=== PATIENT | female | born 1965 | race Caucasian/White ===

== ENCOUNTER 2017-05-11 16:40 | Inpatient (IN) ==
[2017-05-11 17:31] LABS: Hemoglobin 16.8 g/dL (11.5-15.4); Mean Corpuscular HGB Conc 33.6 g/dL (31.6-35.5); Mean Corpuscular Hemoglobin 31.4 pg (28.0-33.3); Mean Corpuscular Volume 93.5 fL (83.0-100.0); Mean Platelet Volume 10.8 fL (9.4-12.4); Platelet Count 171 K/mcL (140-400); Red Blood Count 5.35 M/mcL (3.82-4.97); Red Cell Distribution Width 12.9 % (11.5-14.5)
[2017-05-11 17:42] LABS: Calcium 9.5 mg/dL (8.6-10.3); Carbon Dioxide 26 mEq/L (23-29); Chloride 99 mEq/L (98-107); Potassium 4.1 mEq/L (3.5-5.1); Sodium 131 mEq/L (136-145)
[2017-05-11] MEDS ORDERED: Ipratropium/Albuterol Neb 3 ML IH ONE (17:47)
[2017-05-11 17:48] LABS: BUN/Creatinine Ratio 16 (6-26); Blood Urea Nitrogen 9 mg/dL (6-20); Glucose 336 mg/dL (70-105); Osmolality,Calculated 284 (280-300); eGFR For African Americans > 60 (> 60); eGFR For Non-African Americans > 60 (> 60)
[2017-05-11] MEDS ORDERED: Aspirin 81 MG TAB.CHEW PO ONE (17:59)
[2017-05-11] MEDS ORDERED: *HR* Heparin 5,000 UNIT/ML VIAL IVP ONE (18:06)
--- NOTE | 2017-05-11 18:08 | Emergency Department Note ---
Disposition Clinical Impression: NSTEMI (non-ST elevated myocardial infarction) Hypertension Qualifiers: Hypertension type: unspecified Qualified Code(s): I10 - Essential (primary) hypertension Disposition: Admitted As Inpatient Condition: Fair Time of Disposition: 18:41 General Adult HPI - General Chief complaint: ED Recheck/Abnormal Lab/Rx Stated complaint: High B/P, ELIJAH Time Seen by Provider: 05/11/17 17:38 Source: patient Mode of arrival: ambulatory Limitations: no limitations Nursing Notes Reviewed: Yes Vital Signs Reviewed: Yes - History of Present Illness HPI Narrative: 51-year-old female with a history of diabetes, high blood pressure and tobacco use presents for evaluation of elevated blood pressure and dyspnea. Patient states symptom onset has been over the past 2 weeks. Noted to have progressive dyspnea. Denies any fevers or cough. Has a chest pain. Denies any history of heart attacks. Patient was evaluated earlier today and was noted to have higher blood pressures than her baseline. Patient was sent into the ER for further evaluation. Patient denies any other symptoms. Denies any abdominal pain. No nausea or vomiting. States she has been taking her blood pressure medications as directed. Pain Scale: 0 - Related Data Home Medications Medication Instructions Recorded Confirmed Gabapentin [Neurontin] 1,200 mg PO HS 02/24/15 06/06/15 Gabapentin [Neurontin] 600 mg PO DAILY 02/24/15 06/06/15 Insulin Glargine [Lantus] 60 unit SQ HS 02/24/15 06/06/15 Insulin LISPRO [HumaLOG] 20 units SQ TIDWM 02/24/15 06/06/15 Lansoprazole [Prevacid] 15 mg PO DAILY 02/24/15 06/06/15 Lisinopril [Zestril] 10 mg PO DAILY 02/24/15 06/06/15 Meloxicam [Mobic] 15 mg PO DAILY 02/24/15 06/06/15 Ranitidine HCl [Zantac] 150 mg PO BID 02/24/15 06/06/15 Venlafaxine HCl [Effexor Xr] 75 mg PO DAILY 02/24/15 06/06/15 Oxycodone HCl/Acetaminophen 1 each PO BID 05/10/15 06/06/15 [Percocet 10-325 mg Tablet] Lantus 60 units SQ HS 06/06/15 06/06/15 Previous Rx's Medication Instructions Recorded OxyCODONE Immed Rel [Roxicodone 5 5 mg PO Q6HR PRN #60 tablet 05/15/15 MG] metroNIDAZOLE [Flagyl] 250 mg PO TID 14 Days tablet 06/09/15 Lisinopril [Zestril] 20 mg PO DAILY #30 tablet 03/02/17 Allergies Allergy/AdvReac Type Severity Reaction Status Date / Time Penicillins Allergy Hives Verified 05/11/17 16:42 hydrocodone AdvReac Hives Verified 05/11/17 16:42 All systems ED: reviewed and negative except as stated. 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 Absent: symmetric chest wall rise - Respiratory Respiratory exam: Present: normal lung sounds bilaterally, prolonged expiratory phase. Absent: respiratory distress - Cardiovascular Cardiovascular exam: Present: regular rate, normal rhythm. Absent: systolic murmur - Abdominal Exam Abdominal exam: Present: soft, Non-Tender - Extremities Exam Extremities exam: Present: normal inspection. Absent: pedal edema - Back Exam Back exam: Present: normal inspection - Neurological Exam Neurological exam: Present: alert - Skin Skin exam: Present: warm, dry, intact, normal color Course - Reevaluation(s) Reevaluation #1: Patient seen and examined. Patient's resting comfortably. Patient continues to deny chest pain. Time: 18:58 Vital Signs Temperature 98.5 F 05/11/17 16:42 Pulse Rate 95 05/11/17 16:42 Respiratory Rate 16 05/11/17 16:42 Blood Pressure 185/99 05/11/17 16:42 O2 Sat by Pulse Oximetry 93 05/11/17 16:42 Temperature 98.5 F 05/11/17 16:42 Pulse Rate 109 05/11/17 18:30 Respiratory Rate 20 05/11/17 18:30 Blood Pressure 163/96 05/11/17 18:30 O2 Sat by Pulse Oximetry 96 05/11/17 18:30 Oxygen Delivery Oxygen Delivery Room Air Medical Decision Making - MDM Narrative Medical decision making narrative: 51-year-old female presents for evaluation of dyspnea and elevated blood pressure. Patient had a troponin which was elevated. Patient's EKG shows no acute changes. Given the patient's dyspnea a d-dimer was ordered from the ER and instructed the hospitalist to follow up if elevated will get his CTA. Patient will be started on heparin given the elevated troponin. Patient does not have a history of GI bleed. Patient does not appear to be anemic. Patient was given nitroglycerin to help with blood pressure control in the setting of an elevated troponin. Also given aspirin. She was also noted to have elevated blood sugar. Patient was given IV insulin. - Lab Data Lab results reviewed: Yes I reviewed the patient's lab results. Result diagrams: 05/11/17 17:13 05/11/17 17:13 Lab Results 05/11/17 05/11/17 05/11/17 Range/Units 17:13 17:13 17:13 WBC 10.0 (4.3-11.1) K/mcL RBC 5.35 H (3.82-4.97) M/mcL Hgb 16.8 H (11.5-15.4) g/dL Hct 50.0 H (35.3-44.9) % MCV 93.5 (83.0-100.0) fL MCH 31.4 (28.0-33.3) pg MCHC 33.6 (31.6-35.5) g/dL RDW 12.9 (11.5-14.5) % Plt Count 171 (140-400) K/mcL MPV 10.8 (9.4-12.4) fL Sodium 131 L (136-145) mEq/L Potassium 4.1 (3.5-5.1) mEq/L Chloride 99 (98-107) mEq/L Carbon Dioxide 26 (23-29) mEq/L BUN 9 (6-20) mg/dL Creatinine 0.57 L (0.60-1.20) mg/dL Est GFR ( Amer) > 60 (> 60) Est GFR (Non-Af Amer) > 60 (> 60) BUN/Creatinine Ratio 16 (6-26) Glucose 336 H (70-105) mg/dL Calculated Osmolality 284 (280-300) Lactic Acid 1.8 (0.5-2.2) mmol/L Calcium 9.5 (8.6-10.3) mg/dL Troponin I (< 0.04) ng/mL B-Natriuretic Peptide (Less than 100) pg/mL 05/11/17 05/11/17 Range/Units 17:13 17:13 WBC (4.3-11.1) K/mcL RBC (3.82-4.97) M/mcL Hgb (11.5-15.4) g/dL Hct (35.3-44.9) % MCV (83.0-100.0) fL MCH (28.0-33.3) pg MCHC (31.6-35.5) g/dL RDW (11.5-14.5) % Plt Count (140-400) K/mcL MPV (9.4-12.4) fL Sodium (136-145) mEq/L Potassium (3.5-5.1) mEq/L Chloride (98-107) mEq/L Carbon Dioxide (23-29) mEq/L BUN (6-20) mg/dL Creatinine (0.60-1.20) mg/dL Est GFR ( Amer) (> 60) Est GFR (Non-Af Amer) (> 60) BUN/Creatinine Ratio (6-26) Glucose (70-105) mg/dL Calculated Osmolality (280-300) Lactic Acid (0.5-2.2) mmol/L Calcium (8.6-10.3) mg/dL Troponin I 0.13 H* (< 0.04) ng/mL B-Natriuretic Peptide 125 H (Less than 100) pg/mL - Radiology Data Radiology results reviewed: Yes I reviewed the patient's radiology results. Chest X-Ray 02/14/18 16:46 IMPRESSION: No acute cardiopulmonary abnormality. D/ / Claudy Diamond / Claudy Diamond Interpreting Provider: Claudy Diamond - EKG Data EKG #1 EKG attestation: Yes I reviewed and interpreted this EKG. EKG shows normal: sinus rhythm Rate: normal Rhythm: NSR [place]/QRS: normal P waves: DAVI T wave inversions noted in: v1 Interpretation: no acute changes S.B.A.R. - S.B.AGenny Situation: Demographics Background: Presenting Complaint Assessment: Vital Signs, Course and respsone to treatment, Patient/Family Expectation Recommendation: Recommendation based on pending studies, treatments, or consults (Follow up on D dimer) S.B.A.Anais Report Given to: Piotr Garza Repor Time: 18:57 Attestation Statement - Attestation Attestation: I examined this patient and my medical decision-making was reviewed with the Resident Physician. I agree with the documented findings, disposition and treatment plan as described except to the extent set forth below. Patient to the ED with high blood pressure. Sent in by her stretcher helper. For the second visit she has had high blood pressure. Systolic over 200. She complained of some tightness in her chest and shortness of breath over the past couple weeks that she sent her for evaluation. On exam she is in no acute distress. Blood pressure is 170/110 on my evaluation. Sitting up in a chair pleasant and conversant. Plan. Patient had triage labs done that show positive for an appointment 13. She has been experiencing some shortness of breath. We will place her on heparin and admitted to the hospital for further blood pressure management and cardiac workup. 35 minutes of critical care exclusive of separately billed procedures.
[2017-05-11] MEDS ORDERED: Heparin 25,000 UNIT/500 ML D5W 25,000 UNIT/500 ML BAG IVC SCH (18:15)
[2017-05-11] MEDS ORDERED: Nitroglycerin 0.4 MG TAB.SUBL SL ONE (18:16)
[2017-05-11] MEDS: Nitroglycerin 0.4 MG TAB.SUBL SL PRN ×3 (18:18→21:22)
[2017-05-11] MEDS ORDERED: *HR* Heparin 5,000 UNIT/ML VIAL IVP PRN ×2 (18:34)
[2017-05-11] MEDS ORDERED: Insulin Regular, Human 100 UNIT/ML IV ONE (18:55)
[2017-05-11 19:38] LABS: D-Dimer < 215 ng/mLFEU (0-500)
[2017-05-11 19:39] LABS: Activated Partial Thrombo Time 33.1 Seconds (26.0-36.0); INR 1.1
--- NOTE | 2017-05-11 19:56 | Internal Med History&Physical ---
Date of Encounter: 05/11/17 Time of Encounter: 19:53 Assessment and Plan (1) Hyperlipidemia Current visit: Yes Status: Chronic Chronic check lipid profile in a.m. Qualifiers: Hyperlipidemia type: pure hypercholesterolemia Qualified Code(s): E78.00 - Pure hypercholesterolemia, unspecified; E78.0 - Pure hypercholesterolemia (2) NSTEMI (non-ST elevated myocardial infarction) Current visit: Yes Status: Acute Patient will regarding chest pain typical of cardiac chest pain troponin 0.13 with trend troponins keep nothing by mouth after midnight for possible cardiac cath (3) HTN (hypertension) Current visit: Yes Status: Chronic Chronic uncontrolled likely contribution to cardiac ischemia Qualifiers: Hypertension type: essential hypertension Qualified Code(s): I10 - Essential (primary) hypertension (4) Diabetes mellitus Current visit: No Status: Chronic Chronic resume home medication list*sliding scale and check hemoglobin A1c a.m. 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 Taylor is a 51 year old female Patient with history of diabetes, hypertension, smoking history, high cholesterol anxiety and depression and obesity high. Patient presented to the diabetic clinic today a blood pressure was very high also has been having chest pressure and progressive shortness of breath she was then sent to the emergency room patient reports in the last 2 weeks of having chest pain and shortness of breath with exertion emergency room evaluation troponin was 0.13 blood pressure was 180/99 d-dimer was negative therefore CTA was not done patient admitted for further cardiac evaluation started on heparin drip and will consult cardiology and and keep nothing by mouth after midnight for possible cardiac cath in am. Past Med Surg Social Fam HX - Past Medical History Medical history: diabetes, hyperlipidemia, hypertension, other Psychiatric history: anxiety, depression - Past Surgical History Surgical History: appendectomy, , cholecystectomy, other - Social History Smoking Status: Current every day smoker Smokeless Tobacco Status: No Alcohol use: none Drug use: none - Family History Father Living Status: Still Living Hx Family Cardiac Disorders: Yes (hyperlipidemia, htn) Hx Family Respiratory Disorders: No Hx Family Cancer: No Hx Family GI Disorders: No Hx Family Endocrine Disorder: Yes (diabetes) Hx Family Neuromuscular Disorders: No Hx Family Neurologic Disorders: No Hx Family HEENT Disorders: No Hx Family Autoimmune Disorders: No Internal Medicine - H&P: Meds Gabapentin [Neurontin] 1,200 mg PO HS 02/24/15 [History] Gabapentin [Neurontin] 600 mg PO BID 02/24/15 [History] Ranitidine HCl [Zantac] 150 mg PO BID 02/24/15 [History] Venlafaxine HCl [Effexor Xr] 75 mg PO DAILY 02/24/15 [History] Oxycodone HCl/Acetaminophen [Percocet 10-325 mg Tablet] 1 each PO TID PRN [History] Lisinopril [Zestril] 20 mg PO DAILY #30 tablet 03/02/17 [Rx] Albuterol Sulfate [Ventolin Hfa] 2 puff IH Q4H PRN 05/11/17 [History] Fluticasone Propionate Nasal [Flonase] 100 mcg NS DAILY PRN 05/11/17 [History] Insulin Regular, Human [Humulin R U-500 Kwikpen] 275 unit SQ TID 05/11/17 [ History] Meloxicam [Meloxicam] 15 mg PO DAILY 05/11/17 [History] Metformin HCl [Metformin HCl ER] 1,000 mg PO QPM 05/11/17 [History] 3 Allergy/AdvReac Type Severity Reaction Status Date / Time Penicillins Allergy Hives Verified 05/11/17 16:42 hydrocodone AdvReac Hives Verified 05/11/17 16:42 All Systems PM: A 10-system review of systems was performed and is negative for pertinent findings except as documented above in the HPI. - Constitutional Constitutional: fatigue - EENT Eyes: no change in vision, no discharge, no pain, no photophobia Ears: no ear discharge, no ear pain, no tinnitus Nose, mouth and throat: no dysphagia, no nasal discharge, no neck pain, no sore throat - Cardiovascular Cardiovascular ROS IM: chest pain, dyspnea, dyspnea on exertion - Respiratory Respiratory: dyspnea on exertion, no cough, no dyspnea, no wheezing, no excessive phlegm production - Gastrointestinal Gastrointestinal: no abdominal pain, no diarrhea, no hematemesis, no hematochezia, no melena, no nausea, no vomiting - Genitourinary Genitourinary: no change in urinary stream, no dysuria, no flank pain, no hematuria - Musculoskeletal Musculoskeletal ROS IM: no numbness, no tingling - Constitutional Vitals: Temp Pulse Resp BP Pulse Ox 98.5 F 109 14 155/96 96 05/11/17 16:42 05/11/17 18:30 05/11/17 19:37 05/11/17 19:37 05/11/17 18:30 - Head Head exam: Present: atraumatic, normocephalic - Eye Eye exam: Present: PERRL, conjuntiva pink, sclera anicteric Pupils: Present: PERRL - Neck Neck exam general surgery: Present: supple, trachea midline. Absent: lymphadenopathy - Respiratory Respiratory exam: Present: CTAB. Absent: accessory muscle use, rales, rhonchi, wheezes - Cardiovascular Cardiovascular exam: Present: RRR, +S1, +S2. Absent: diastolic murmur, gallop, rubs, systolic murmur - GI/Abdominal GI/Abdominal exam: Present: normal bowel sounds, soft, no peritoneal signs. Absent: distended, tenderness - Extremities Exam Extremities exam: Present: warm, radial pulses palpable and symmetrical. Absent : calf tenderness, cyanotic, pedal edema - Neurological Exam Neurological exam: Present: CN II-XII intact, oriented X3, no focal deficits. Absent: pronater drift, facial droop, speech deficit - Skin Skin exam: Present: dry, intact Internal Med - H&P Results - Labs CBC & Chem 7: 05/11/17 17:13 05/11/17 17:13
[2017-05-11] MEDS ORDERED: *HR* HYDROcodone/Acet 5/325 mg TABLET PO PRN (19:59)
[2017-05-11] MEDS ORDERED: Naloxone 0.4 MG/ML INJ IVP PRN (19:59)
[2017-05-11] MEDS ORDERED: Acetaminophen 325 MG TABLET PO PRN (19:59)
[2017-05-11] MEDS ORDERED: Fluticasone Propionate Nasal 50 MCG/SPRAY BOTTLE NS PRN (20:02)
[2017-05-11] MEDS ORDERED: *HR* Dextrose 50 % in Water (Syg) 50 ML SYRINGE IVP PRN (20:05)
[2017-05-11] MEDS ORDERED: Dextrose Gel 15 GM/37.5 ML TUBE PO PRN ×2 (20:05)
[2017-05-11] MEDS ORDERED: D5% in Water 1,000 ML IVC PRN (20:05)
[2017-05-11] MEDS: Famotidine 20 MG TABLET PO SCH (22:30)
[2017-05-11] MEDS: 0.9 % Sodium Chloride 1,000 ML IVC SCH (22:31)
[2017-05-12] MEDS ORDERED: Nitroglycerin 1 INCH/GM PACKET TP ONE ×2 (00:42)
[2017-05-12] MEDS: Insulin LISPRO 300 UNITS/3 ML VIAL SQ SCH ×5 (01:15→22:04)
[2017-05-12] MEDS: Gabapentin 400 MG CAPSULE PO SCH ×2 (01:21→22:03)
[2017-05-12 04:10] LABS: Hematocrit 46.3 % (35.3-44.9); Hemoglobin 15.3 g/dL (11.5-15.4); Mean Corpuscular Hemoglobin 31.2 pg (28.0-33.3); Mean Corpuscular Volume 94.5 fL (83.0-100.0); Mean Platelet Volume 11.3 fL (9.4-12.4); Platelet Count 159 K/mcL (140-400); Red Cell Distribution Width 13.2 % (11.5-14.5)
[2017-05-12 04:39] LABS: Alanine Aminotransferase 306 Units/L (7-52); Albumin 3.3 g/dL (3.5-5.7); Albumin/Globulin Ratio 1.1 (1.1-2.2); Alkaline Phosphatase 106 Units/L (34-104); Aspartate Amino Transferase 327 Units/L (13-39); BUN/Creatinine Ratio 17 (6-26); Bilirubin,Total 0.4 mg/dL (0.3-1.0); Blood Urea Nitrogen 9 mg/dL (6-20); Calcium 8.7 mg/dL (8.6-10.3); Carbon Dioxide 27 mEq/L (23-29); Chloride 103 mEq/L (98-107); Cholesterol 191 mg/dL (< 200); Globulin 2.9 g/dL (2.4-3.5); Glucose 246 mg/dL (70-105); HDL Cholesterol 24 mg/dL (40-59); Magnesium 1.6 mg/dL (1.6-2.6); Osmolality,Calculated 285 (280-300); Potassium 4.4 mEq/L (3.5-5.1); Sodium 134 mEq/L (136-145); Total Protein 6.2 g/dL (6.4-8.9); Triglycerides 451 mg/dL (< 150); eGFR For African Americans > 60 (> 60); eGFR For Non-African Americans > 60 (> 60)
[2017-05-12] MEDS ORDERED: Lisinopril 20 MG TABLET PO SCH ×2 (09:00→09:19)
--- NOTE | 2017-05-12 09:21 | Internal Med Progress Note ---
Date of Encounter: 05/12/17 Time of Encounter: 09:19 - Assessment and plan (1) NSTEMI (non-ST elevated myocardial infarction) Current Visit: Yes Status: Acute Assessment and plan: Continue heparin drip. Cardiology is consulted. Echo is pending. Flat aspirin and a statin. Continue beta laura. (2) HTN (hypertension) Current Visit: Yes Status: Chronic Assessment and plan: The patient's blood pressure is better controlled compared to admission. Diastolic still elevated. Will increase lisinopril to 30 mg daily. Continue with metoprolol tartrate 50 mg twice a day and we have room to increase that as well. We will add hydralazine to be used IV when necessary. Qualifiers: Hypertension type: essential hypertension Qualified Code(s): I10 - Essential (primary) hypertension (3) Diabetes mellitus Current Visit: No Status: Chronic Assessment and plan: Continue with insulin sliding scale. Continue with Accu-Cheks. Qualifiers: Diabetes mellitus type: type 2 Diabetes mellitus complication status: with hyperglycemia Diabetes mellitus superintendent terminal insulin use: unspecified senior care insulin use status Qualified Code(s): E11.65 - Type 2 diabetes mellitus with hyperglycemia (4) DVT prophylaxis Current Visit: Yes Status: Acute Assessment and plan: Patient is on heparin drip - Subjective Interval history: Patient seen and examined. Admitted yesterday with elevated blood pressure and elevated troponins. Treated as an NSTEMI with a heparin drip and consult cardiology. Blood pressure is better controlled although the diastolic blood pressure is elevated this morning. She has been afebrile. - Constitutional Vitals: Temp Pulse Resp BP Pulse Ox 97.7 F 81 18 149/104 94 05/12/17 05:21 05/12/17 07:00 05/12/17 07:00 05/12/17 07:00 05/12/17 05:21 Exam: GEN: NAD CVS: RRR. S1, S2, No m/r/g RESP: CTAB ABD: Soft, NT, ND, +BS EXT: No edema. 2+ DP. No rashes NEURO: Nonfocal Internal Medicine: Result - Labs CBC & Chem 7: 05/12/17 03:42 05/12/17 03:42 Labs: Short CBC 05/12/17 Range/Units 03:42 WBC 7.5 (4.3-11.1) K/mcL Hgb 15.3 D (11.5-15.4) g/dL Hct 46.3 H (35.3-44.9) % Plt Count 159 (140-400) K/mcL BMP 05/12/17 03:42 Sodium 134 L Potassium 4.4 Chloride 103 Carbon Dioxide 27 BUN 9 Creatinine 0.52 L Glucose 246 H Calcium 8.7 Cardiac Enzymes 05/11/17 05/12/17 Range/Units 20:35 02:29 Troponin I 0.14 H* 0.14 H* (< 0.04) ng/mL Liver Function 05/12/17 Range/Units 03:42 Total Bilirubin 0.4 (0.3-1.0) mg/dL AST 327 H (13-39) Units/L ALT 306 H (7-52) Units/L Alkaline Phosphatase 106 H (34-104) Units/L Albumin 3.3 L (3.5-5.7) g/dL - ABG Interpretation ABG results: PT/INR, D-dimer PT 12.0 Seconds (9.4-12.1) 05/11/17 18:33 D-Dimer < 215 ng/mLFEU (0-500) 05/11/17 18:33 Consult Discharge Plan - Plan Referrals: Mary Arias, ADULT HEALTH CLINICAL NURSE SPECIALIST [Primary Care Provider] -
[2017-05-12] MEDS: Famotidine 20 MG TABLET PO SCH ×2 (10:35→22:02)
[2017-05-12] MEDS: Venlafaxine XR (24 HR) 75 MG CAP.ER.24H PO SCH (10:35)
[2017-05-12] MEDS: Aspirin Enteric Coated 81 MG Tablet PO SCH (12:29)
[2017-05-12] MEDS ORDERED: Heparin 1,000 UNITS/500 mL 500 ML ONE (14:27)
[2017-05-12] MEDS ORDERED: *HR* Heparin 10,000 UNIT/10 ML VIAL ONE (14:27)
[2017-05-12] MEDS ORDERED: ISOVUE-370 200 ML INFUS..BTL IV ONE (14:27)
[2017-05-12] MEDS ORDERED: 0.9 % Sodium Chloride 1,000 ML ONE (14:27)
--- NOTE | 2017-05-12 14:56 | Pre-Sedation Evaluation ---
Pre-sedation evaluation - Pre-sedation checklist Date of procedure: 05/12/17 Procedure: left heart cath Recent Vitals: Last Vital Signs Temp 97.9 F 05/12/17 11:00 Pulse 69 05/12/17 11:00 Resp 18 05/12/17 11:00 BP 152/81 05/12/17 11:00 Pulse Ox 97 05/12/17 11:00 H&P (including ROS) documented in medical record: Yes Previous reaction to sedatives/anesthetics: No Dietary Status: NPO after Midnight Airway Assessment: Patient can open mouth completely, TMJ function normal Dentition: No loose teeth or bridges Possible difficult airway: No ASA Classification *see protocol: CLASS IV-Severe systemic disease/constant threat to pt's life Plan of Care: Pt appropriate candidate for procedure/moderate/conscious sedation , Risks/benefits of procedure/sedation discussed w/ patient/family, If not NPO; Risk of intake outweiged by necessity to perform procedure
[2017-05-12] MEDS ORDERED: *HR* Midazolam HCl 5 MG/5 ML VIAL IVP ONE (14:57)
[2017-05-12] MEDS ORDERED: Nitroglycerin 1,000 MCG/10 ML VIAL IV ONE (15:01)
[2017-05-12] MEDS ORDERED: *HR* Ticagrelor 90 MG TABLET ONE (15:34)
--- NOTE | 2017-05-12 16:04 | Invasive Diagnostic Lab Proc ---
Name: Queenie Taylor Date of Study: 05/12/2017 Date: 1965 Ht: 59.1in Medical Record#: [id number] Age: 51 Wt: 180.12lb Gender: Female BSA: 1.76 Order #: [id number] BMI: 36.31 Physicians Procedure Physician: Geovanni Jones DO Referring MD: Referring MD: Staff Name Position Time In Vasquez Conrad RN Cook Station 02:48 PM Cinthia Garcia RN Monitor 02:48 PM Napoleon Dixon RT (R) Scrub 02:48 PM Indications Indication Non-Stemi Procedures Performed Procedure L HRT ARTERY/VENTRICLE ANGIO PRQ CARD SHMUEL STENT W/ANGIO 1 VSL Pre-Procedure Checklist Informed consent is complete signed and on chart. H&P is on chart. ID band is on and ID verified with patient. Patient NPO for procedure The procedure was described for the patient and questions were answered. Blood Pressure: 155/99 ECG is on chart. Rhythm: NSR Plan of Care Patient will tolerate the procedure without complications. Adequate level of comfort will be maintained. Hemodynamics will remain stable Patient will recover from procedure without complications. Respiratory function will be maintained. Cardiac rhythm will remain stable. Patient temperature will be maintained. Patient and/or family have verbalized understanding of the procedure. Patient Education Chief Complaint/Reason for Test: Cardiac Cath Developmental Category: Adult (18-64 years) Developmentally Appropriate for Age: Yes Learning Barriers: None Education Needs: Procedure Education Method: Verbal Information Taught: Cardiac Cath Educational Evaluation: Able to repeat information Intravenous Access Time IV Size Location DC'd Fluid/Drip Rate Units RN 02:47 PM 18g 1 03/31" Patent On Arrival Lt Arm 0.9NaCl 25 ml/hr Vasquez Conrad RN Allergies Penicillins hydrocodone PCN,AMPICILLILN PCN, AMPICILLIN Oxycodone Vital Signs Time BP (mmHg) HR (bpm) O2 Sat. RR (bpm) LOC 02:49 PM / % 5 = Fully awake and oriented or at pre-proc level 02:49 PM / % 4 = Oriented but drowsy 03:12 PM / % 4 = Oriented but drowsy 03:00 PM 154 / 90 69 96 % 15 03:04 PM 148 / 95 69 96 % 20 03:09 PM 133 / 96 70 96 % 24 03:14 PM 147 / 83 68 96 % 17 03:19 PM 161 / 93 80 96 % 20 03:24 PM 171 / 100 69 97 % 16 03:29 PM 144 / 92 75 97 % 20 03:34 PM 155 / 99 75 95 % 21 03:39 PM 169 / 100 70 98 % 19 03:28 PM / % 4 = Oriented but drowsy Procedural Medications Time Medication Dose Units Method Given By 02:48 PM Oxygen 2 L/min nasal cannula Vasquez Conrad RN 03:02 PM Versed 2 mg Intravenous Vasquez Conrad RN 03:09 PM Versed 1 mg Intravenous Vasquez Conrad RN 03:11 PM Lidocaine 2% 10 ml Subcutaneous Geovanni Jones DO 03:20 PM Heparin 5000 units Intravenous Vasquez Conrad RN 03:31 PM Nitroglycerin 200 mcg Intracoronary Geovanni Jones DO 03:34 PM Brilinta 180 mg Orally Vasquez Conrad RN ASA Classification: CLASS III- Severe systemic disease (i.e. prior AMI, diabetes with vascular complications, morbid obesity) Rhonda Score Preprocedure Postprocedure Activity 2- Moves 4 extremities sustained head lift Activity 2- Moves 4 extremities sustained head lift Circulation 2- SBP +/= 20 points of pre-anesthetic level Circulation 2- SBP +/= 20 points of pre-anesthetic level Consciousness 2- Awake and alert oriented x 3 Consciousness 2- Awake and alert oriented x 3 O2 Saturation 2- Able to maintain O2 satruation of 92% on room air O2 Saturation 2- Able to maintain O2 satruation of 92% on room air Respiratory 2- Able to deep breathe and cough well Respiratory 2- Able to deep breathe and cough well Total Score 10 Total Score 10 Contrast Agent: Isovue Fluoro Dose: 784 mGy Activated Clotting Time Time Seconds to Clot 03:30 PM 400 Procedure Log Time Note Enter By 02:40 PM CathStat 02:48 PM Pt arrived to labor relations consultant 2 at 14:48 [email or web address] 02:48 PM Vasquez Conrad RN Position: Cook Station Time in: 14:48 [email or web address] 02:48 PM Cinthia Garcia RN Position: Monitor Time in: 14:48 [email or web address] 02:48 PM Napoleon Dixon (R) Position: Scrub Time in: 14:48 [email or web address] 02:48 PM Case Delayed no [email or web address] 02:49 PM Time: 14:48 Oxygen on at 2 L/min per nasal cannula by Vasquez Conrad RN csmith 02:49 PM Time: 14:49 Patient comfortable and pain free: Yes [email or web address] 02:49 PM Time: 14:49LOC: 5 = Fully awake and oriented or at pre-proc level csmith 02:50 PM Physician arrived 14:50 [email or web address] 02:50 PM Meet and greet completed csmith 02:50 PM Sign in performed according to hospital policy. csmith 02:51 PM Procedure start 14:51 [email or web address] 02:58 PM Case Start 02:58 PM Vitals capture started with the following parameters, Patient=Adult, Interval=5 min, Initial Hcmdayio=260 mmHg, Deflation Rate=5 mmHg, Cuff placed on Right Arm 03:00 PM HR=69 bpm, DCYL=473/90 mmhg, SpO2=96.0 %, Resp=15 B/min, Comment=nsr 03:02 PM Hair removed from procedure site in procedure lab using clippers. Bilateral groin prepped with Chloraprep by Cinthia Garcia RN, then patient was draped. Skin intact. [email or web address] 03:02 PM Time: 15:02 Versed 2 mg Intravenous Given by Vasquez Conrad RN csmith 03:03 PM Clinical Presentation: Non-STEMI csmith 03:04 PM HR=69 bpm, DODG=207/95 mmhg, SpO2=96.0 %, Resp=20 B/min, Comment=nsr 03:04 PM Pressure channel 2 zeroed. 03:09 PM HR=70 bpm, BGSE=080/96 mmhg, SpO2=96.0 %, Resp=24 B/min, Comment=nsr 03:10 PM Time: 15:09 Versed 1 mg Intravenous Given by Vasquez Conrad RN scoates 03:11 PM Time out performed according to hospital policy scoates 03:11 PM Time: 15:11 10 ml Lidocaine 2% to right groin Subcutaneous Given by Geovanni Jones DO scoates 03:12 PM Time: 14:49 Patient comfortable and pain free: Yes scoates 03:12 PM Time: 14:49LOC: 4 = Oriented but drowsy scoates 03:14 PM HR=68 bpm, TQRV=706/83 mmhg, SpO2=96.0 %, Resp=17 B/min, Comment=nsr 03:14 PM Micro-Introducer Kit utilized for sheath placement scoates 03:14 PM Access obtained by percutaneous puncture. 6Fr 10cm [facility] sheath placed in right Femoral artery. [id number] scoates 03:15 PM 6Fr FR 4 catheter inserted over the wire DN scoates 03:15 PM Recorded Pressure: LV, HR=71, Condition=Condition 1 (Left Ventricle) LV 149/9/22 03:15 PM Recorded Pressure: LV, Ao, HR=68, Condition=Condition 1 (Left Ventricle) LV 164/8/27, (Aorta) Ao 138/59/98 03:15 PM Catheter selectively placed in left ventricle scoates 03:15 PM Bolus angiogram of left Ventricle complete: hand injected for a total of 10 mls scoates 03:15 PM RCA angiography performed in multiple views. scoates 03:16 PM Catheter removed scoates 03:16 PM 6Fr FL 4 catheter inserted over the wire DN scoates 03:17 PM Recorded Pressure: Ao, HR=70, Condition=Condition 1 (Aorta) Ao 141/76/99 03:18 PM LCA angiography performed in multiple views. scoates 03:19 PM Catheter removed scoates 03:19 PM Coronary Dominance: Left scoates 03:19 PM HR=80 bpm, OBTI=906/93 mmhg, SpO2=96.0 %, Resp=20 B/min, Comment=nsr 03:20 PM Lesion found in Distal Circumflex. Pre Stenosis: 90 Pre ELLEN Flow: 3: Complete and Brisk Flow/Perfusion scoates 03:20 PM Circumflex, Obtuse Marginal, Left Posterior Descending, and Left Posterolateral Coronary Arteries with 90 % stenosis. scoates 03:20 PM Time: 15:20 Heparin 5000 units Intravenous Given by Vasquez Conrad RN scoates 03:21 PM PCI Status Urgent scoates 03:21 PM PCI Indication: PCI for high risk Non-STEMI or unstable angina scoates 03:21 PM 6Fr JL4 Runway guide catheter was used to cannulate the PCI vessel successfully. reused? No scoates 03:21 PM Inflation device was opened. scoates 03:23 PM Guide catheter removed intact. scoates 03:23 PM 6Fr XB LAD 3.5 Hickman Bright-Tip guide catheter was used to cannulate the PCI vessel successfully. reused? No scoates 03:24 PM HR=69 bpm, LDDU=244/100 mmhg, SpO2=97.0 %, Resp=16 B/min, Comment=nsr 03:25 PM act drawn/ running scoates 03:26 PM .014 Choice Extra Support 300cm guide wire across target lesion- successful. reused? No scoates 03:26 PM 3.0mm x 16mm Synergy drug-eluting stent across target lesion- successful Lot #[id number] scoates 03:26 PM Recorded Pressure: Ao, HR=72, Condition=Condition 1 (Aorta) Ao 167/88/120 03:28 PM Time: 15:12LOC: 4 = Oriented but drowsy scoates 03:28 PM Time: 15:12 Patient comfortable and pain free: Yes scoates 03:28 PM Recorded Pressure: Ao, HR=77, Condition=Condition 1 (Aorta) Ao 171/95/126 03:29 PM HR=75 bpm, GUJP=276/92 mmhg, SpO2=97.0 %, Resp=20 B/min, Comment=nsr 03:30 PM At 15:30 the ACT was 400+ seconds. scoates 03:30 PM Recorded Pressure: Ao, HR=68, Condition=Condition 1 (Aorta) Ao 137/79/101 03:31 PM Stent deployed @ 14 libby for 17 seconds scoates 03:31 PM Stent delivery system removed intact. scoates 03:31 PM Time: 15:31 Nitroglycerin 200 mcg Intracoronary Given by Geovanni Jones DO scoates 03:33 PM Guide wire removed intact. scoates 03:33 PM Guide catheter removed intact. scoates 03:33 PM Bolus angiogram of right Femoral complete: hand injected for a total of 5 mls scoates 03:34 PM HR=75 bpm, XFPD=602/99 mmhg, SpO2=95.0 %, Resp=21 B/min, Comment=nsr 03:34 PM Time: 15:34 Brilinta 180 mg Orally Given by Vasquez Conrad RN scoates 03:35 PM Procedure completed at 15:35 scoates 03:35 PM Did you address ELLEN flow and Dominance? Yes scoates 03:35 PM Arterial sheath pulled, Angio-seal closure device used and was Successful [id number] S/N. scoates 03:38 PM Estimated Blood Loss: less than 20cc scoates 03:38 PM Post ECG NSR scoates 03:38 PM Post Blood Pressure 144/92 scoates 03:39 PM 15:39 Post Pulses Bilateral DP & PT 1+ scoates 03:39 PM Information taught Cardiac Cath, PCI, and Angioseal scoates 03:39 PM Education needs Procedure, Plan of Care, and Responsibilities of Patient in Care scoates 03:39 PM Learning barriers :None scoates 03:39 PM Education Methods Verbal scoates 03:39 PM Education evaluation Able to repeat information scoates 03:39 PM HR=70 bpm, IGVI=491/100 mmhg, SpO2=98.0 %, Resp=19 B/min, Comment=nsr 03:39 PM Site status No bleeding/hematoma - Rt Groin as reported by Vasquez Conrad RN at 15:39 scoates 03:39 PM Opsite applied scoates 03:41 PM Plavix, Effient or Brilinta given Yes scoates 03:41 PM Delay to floor No scoates 03:41 PM Family placed in not here at this time. scoates 03:41 PM Complications: None scoates 03:41 PM Fluoro Time: 5.6 scoates 03:41 PM Radiation Dose 784 mGy scoates 03:43 PM Time: 15:28 Patient comfortable and pain free: Yes scoates 03:43 PM Time: 15:28LOC: 4 = Oriented but drowsy scoates 03:53 PM Report given to Geri CHAVEZ Pt taken to 2NE Room #32. 15:52 scoates 03:53 PM Patient out of room: 15:53 scoates Complications Complication None Hemodynamics Pressures Site Systolic/A Wave Diastolic/V Wave Mean LV 149 9 22 LV 164 8 27 AO 138 59 98 AO 141 76 99 AO 167 88 120 AO 171 95 126 AO 137 79 101 Post Procedure Information Blood Pressure: 144/92 mmHg Rhythm: NSR Post procedural instructions were given Closure Device Time Device Success/Fail 05/12/2017 3:38:00 PM Angio-Seal VIP Successful Site Checks Time Location Status Staff Sheath In? Note 03:39 PM Rt Groin No bleeding/hematoma Vasquez Conrad RN Pulses Time Site Pre-Procedure Post-Procedure Note 05/12/2017 2:50:00 PM Bilateral DP & PT 1+ 3:39:00 PM Bilateral DP & PT 1+ Updated by Vasquez Conrad RN on 05/12/2017 3:54:51 PM electronically signed on 05/12/2017 3:55:29 PM with status of Final
--- NOTE | 2017-05-12 16:09 | Cardiology Consult Note ---
Date of Encounter: 05/12/17 Time of Encounter: 16:07 Assessment and Plan (1) Elevated troponin Current Visit: Yes Status: Acute Mild troponin elevation of unclear significance. Patient with multiple risk factors for CAD. Suspect probable elevation related to poorly controlled hypertension, but CAD cannot be excluded. We discussed options, including medical therapy, stress test vs cardiac catheterization. Patient prefers cardiac catheterization. The risks, benefits, and alternatives. Further recommendations to follow. (2) HTN (hypertension) Current Visit: Yes Status: Chronic Patient with poorly controlled hypertension. We discussed the importance of a low sodium diet, daily exercise. Tobacco cessation emphasized. Agree with increasing lisinopril, recommend 20 mg twice daily. Monitor blood pressure. If needed, may need to consider additional medications prior to or after discharge. Qualifiers: Hypertension type: essential hypertension Qualified Code(s): I10 - Essential (primary) hypertension Discussion w patient/family: The assessment and plan as outlined above was discussed with the patient and/or family members who expressed understanding and agreement. All questions were answered. Thank you for involving us in the care of your patient. Please call with any questions. History of Present Illness Consult date: 05/12/17 Requesting physician: Monty Arguello Consult reason: Troponin elevation Chief complaint: HTN History of present illness: Ms. 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 Patient with a ten-year history of hypertension. Admits blood pressure somewhat poorly controlled. Multiple risk factors for CAD, including hyperlipidemia, diabetes, essential HTN , and tobacco use. Describes occasional substernal chest discomfort. Since admission, mild troponin elevation noted. Past Med Surg Social Fam HX - Past Medical History Medical history: diabetes, hyperlipidemia, hypertension, other Psychiatric history: anxiety, depression - Past Surgical History Surgical History: appendectomy, , cholecystectomy, other - Social History Smoking Status: Current every day smoker Smokeless Tobacco Status: No Alcohol use: none Drug use: none - Family History Father Living Status: Still Living Hx Family Cardiac Disorders: Yes (hyperlipidemia, htn, 3x stents this year, clots, coronary stenosis) Hx Family Respiratory Disorders: No Hx Family Cancer: No Hx Family GI Disorders: No Hx Family Endocrine Disorder: Yes (diabetes) Hx Family Neuromuscular Disorders: No Hx Family Neurologic Disorders: Yes (Parkinsons, dementia) Hx Family HEENT Disorders: No Hx Family Autoimmune Disorders: No Medications and Allergies Gabapentin [Neurontin] 1,200 mg PO HS 02/24/15 [History] Gabapentin [Neurontin] 600 mg PO BID 02/24/15 [History] Ranitidine HCl [Zantac] 150 mg PO BID 02/24/15 [History] Venlafaxine HCl [Effexor Xr] 75 mg PO DAILY 02/24/15 [History] Oxycodone HCl/Acetaminophen [Percocet 10-325 mg Tablet] 1 each PO TID PRN [History] Lisinopril [Zestril] 20 mg PO DAILY #30 tablet 03/02/17 [Rx] Albuterol Sulfate [Ventolin Hfa] 2 puff IH Q4H PRN 05/11/17 [History] Fluticasone Propionate Nasal [Flonase] 100 mcg NS DAILY PRN 05/11/17 [History] Insulin Regular, Human [Humulin R U-500 Kwikpen] 275 unit SQ TID 05/11/17 [ History] Meloxicam [Meloxicam] 15 mg PO DAILY 05/11/17 [History] Metformin HCl [Metformin HCl ER] 1,000 mg PO QPM 05/11/17 [History] 3 Allergy/AdvReac Type Severity Reaction Status Date / Time Penicillins Allergy Hives Verified 05/11/17 16:42 hydrocodone AdvReac Hives Verified 05/11/17 16:42 All Systems Review: A 10-system review of systems was performed and is negative for pertinent findings except as documented above in the HPI. - Cardiovascular Cardiovascular: as per HPI, chest pain at rest, dyspnea at rest, dyspnea on exertion Physical Examination General: Conversant, No Apparent Distress HEENT: Atraumatic, Normocephaly, Mucus Membranes Moist Neck: No JVD, Normal carotid pulses Cardiac: Reg Rate and Rhythm, Normal S1 and S2, No Murmur Lungs: Normal Breath Sounds, Other (Scattered rhonchi noted.) Neuro: Alert and responsive Abdomen: Soft Skin: No rashes noted on visualized skin Musculoskeletal: No Chest Wall Tenderness Extremities: No Clubbing, No Cyanosis Results 05/12/17 03:42 05/12/17 03:42 Lab Results 05/11/17 05/12/17 05/12/17 20:35 02:29 03:42 WBC 7.5 Hgb 15.3 D Hct 46.3 H Plt Count 159 APTT Sodium Potassium Chloride Carbon Dioxide BUN Creatinine Glucose Calcium Magnesium Total Bilirubin AST ALT Alkaline Phosphatase Troponin I 0.14 H* 0.14 H* B-Natriuretic Peptide 05/12/17 05/12/17 05/12/17 03:42 03:42 03:42 WBC Hgb Hct Plt Count APTT 71.8 H D Sodium 134 L Potassium 4.4 Chloride 103 Carbon Dioxide 27 BUN 9 Creatinine 0.52 L Glucose 246 H Calcium 8.7 Magnesium 1.6 Total Bilirubin 0.4 AST 327 H ALT 306 H Alkaline Phosphatase 106 H Troponin I B-Natriuretic Peptide 66 05/12/17 05/12/17 09:12 09:12 WBC Hgb Hct Plt Count APTT 44.5 H Sodium Potassium Chloride Carbon Dioxide BUN Creatinine Glucose Calcium Magnesium Total Bilirubin AST ALT Alkaline Phosphatase Troponin I 0.09 H* B-Natriuretic Peptide - Imaging and Cardiology Echo: report reviewed Consult Discharge Plan - Plan Referrals: Mary Arias, [employer] OPERATOR HELPER [Primary Care Provider] -
[2017-05-12] MEDS: 0.9 % Sodium Chloride 1,000 ML IVC SCH (17:14)
[2017-05-12] MEDS: Lisinopril 20 MG TABLET PO SCH (22:02)
[2017-05-13 05:04] LABS: Basophils % 0.4 %; Eosinophils # 0.2 K/mcL (0.0-0.6); Eosinophils % 2.1 %; Hematocrit 45.7 % (35.3-44.9); Hemoglobin 15.2 g/dL (11.5-15.4); Immature Granulocytes % 0.2 % (0-4); Lymphocytes # 2.5 K/mcL (0.6-4.6); Lymphocytes % 28.6 %; Mean Corpuscular HGB Conc 33.3 g/dL (31.6-35.5); Mean Corpuscular Hemoglobin 31.1 pg (28.0-33.3); Mean Corpuscular Volume 93.5 fL (83.0-100.0); Mean Platelet Volume 11.2 fL (9.4-12.4); Monocytes # 0.6 K/mcL (0.0-1.3); Monocytes % 6.5 %; Neutrophils # 5.5 K/mcL (1.6-8.9); Platelet Count 152 K/mcL (140-400); Red Blood Count 4.89 M/mcL (3.82-4.97); Red Cell Distribution Width 13.1 % (11.5-14.5); Segmented Neutrophils % 62.2 %
[2017-05-13 05:22] LABS: BUN/Creatinine Ratio 19 (6-26); Blood Urea Nitrogen 8 mg/dL (6-20); Calcium 8.4 mg/dL (8.6-10.3); Carbon Dioxide 22 mEq/L (23-29); Chloride 105 mEq/L (98-107); Glucose 301 mg/dL (70-105); Osmolality,Calculated 286 (280-300); Potassium 3.7 mEq/L (3.5-5.1); Sodium 133 mEq/L (136-145); eGFR For African Americans > 60 (> 60); eGFR For Non-African Americans > 60 (> 60)
[2017-05-13] MEDS ORDERED: Aspirin 81 MG TAB.CHEW PO SCH (09:00)
[2017-05-13] MEDS: Insulin LISPRO 300 UNITS/3 ML VIAL SQ SCH ×2 (09:23→20:10)
--- NOTE | 2017-05-13 09:25 | Cardiology Progress Note ---
Date of Encounter: 05/13/17 Time of Encounter: 08:30 Assessment and Plan (1) NSTEMI (non-ST elevated myocardial infarction) Current Visit: Yes Status: Acute LHC: s/p successful PCI to LCx; otherwise non-obstructive CAD. TTE: EF 60-65%, mild LVDD, no PH, no significant valvular dysfunction, normal wall motion. No chest pain or symptoms overnight. Mild ecchymosis at right groin cath site. Post PCI discharge instruction discussed including care of care site and importance of uninterrupted DAPT (asa + plavix); patient verbalized understanding. Betablocker increased, continue statin. Cardiac rehab. Risk factor modification emphasized including tobacco cessation, Na restricted diet, daily exercise. Cardiology will sign-off, will arrange outpt. follow-up. (2) HTN (hypertension) Current Visit: Yes Status: Chronic Patient with poorly controlled hypertension. Lisinopril increased to BID dosing on 05/12/17. Remains hypertensive this AM--coreg increased to 6.25 mg BID. (Lopressor stopped on 05/12/17). Will defer further dose adjustments to primary service. Qualifiers: Hypertension type: essential hypertension Qualified Code(s): I10 - Essential (primary) hypertension (3) Tobacco abuse Current Visit: No Status: Chronic Smoking cessation counseling provided. Discussion w patient/family: The assessment and plan as outlined above was discussed with the patient and/or family members who expressed understanding and agreement. All questions were answered. Thank you for involving us in the care of your patient. Please call with any questions. The patient will be discussed and reviewed with Dr. Lozano; Cardiology will sign-off. Subjective Principal diagnosis: NSTEMI, HTN urgency Interval history: Seen and examined. No complaints overnight. Mild ecchymosis at right groin cath site. Objective Vital Signs, Last 4 Hours Temp Pulse Resp BP Pulse Ox 05/13/17 06:53 97.7 F 75 19 165/92 97 General: Conversant, No Apparent Distress HEENT: Atraumatic, Normocephaly, Mucus Membranes Moist Neck: No JVD, Normal carotid pulses Cardiac: Reg Rate and Rhythm, Normal S1 and S2, No Murmur Lungs: Normal Breath Sounds, No Wheeze, Rales, Rhonchi Neuro: Alert and responsive, No focal deficits noted Abdomen: Soft, Non-Tender Skin: No rashes noted on visualized skin Musculoskeletal: No Chest Wall Tenderness Extremities: No Clubbing, No Cyanosis, No Edema, Normal Pulses Other: right groin cath site: dressing C/D/I, mild amount of soft ecchymosis at site. No hematoma or oozing. +2 DP/PT pulses. Results 05/13/17 04:36 05/13/17 04:36 Lab Results 05/12/17 05/12/17 05/12/17 09:12 09:12 19:57 WBC Hgb Hct Plt Count APTT 44.5 H 33.2 Sodium Potassium Chloride Carbon Dioxide BUN Creatinine Glucose Calcium Troponin I 0.09 H* 05/13/17 05/13/17 04:36 04:36 WBC 8.9 Hgb 15.2 Hct 45.7 H Plt Count 152 APTT Sodium 133 L Potassium 3.7 Chloride 105 Carbon Dioxide 22 L BUN 8 Creatinine 0.42 L Glucose 301 H Calcium 8.4 L Troponin I Active Medications Acetaminophen (Tylenol) 650 mg PO Q6HR PRN PRN Reason: Mild Pain/Fever Stop: 11/10/17 20:00 Hydrocodone Bitart/Acetaminophen (Allison 5-325 Mg) 1 tab PO Q6HR PRN PRN Reason: Moderate Pain Stop: 11/10/17 20:00 Aspirin (Aspirin Ec) 81 mg PO DAILY KHANG Stop: 11/11/17 09:31 Last Admin: 05/12/17 12:29 Dose: 81 mg Aspirin (Aspirin) 81 mg PO DAILY KHANG Stop: 11/12/17 09:01 Atorvastatin Calcium (Lipitor) 10 mg PO HS KHANG Stop: 11/11/17 21:01 Last Admin: 05/12/17 22:03 Dose: 10 mg Carvedilol (Coreg) 6.25 mg PO BIDWM KHANG Stop: 11/12/17 08:46 Clopidogrel Bisulfate (Plavix) 75 mg PO DAILY KHANG Stop: 11/12/17 09:01 Dextrose/Water (Dextrose 50% (Syg)) 25 ml IVP AD PRN PRN Reason: Hypoglycemia Stop: 11/10/17 20:06 Famotidine (Pepcid) 20 mg PO BID KHANG Stop: 11/10/17 21:01 Last Admin: 05/12/17 22:02 Dose: 20 mg Fluticasone Propionate (Flonase) 100 mcg NS DAILY PRN; Protocol PRN Reason: Allergy Symptoms Stop: 11/10/17 20:03 Gabapentin (Neurontin) 1,200 mg PO HS KHANG Stop: 11/10/17 21:01 Last Admin: 05/12/17 22:03 Dose: 1,200 mg Glucagon (Glucagen) 1 mg IM ONCE PRN PRN Reason: Hypoglycemia Stop: 11/10/17 20:06 Glucose (Gluctose) 15 gm PO ONCE PRN PRN Reason: Hypoglycemia Stop: 11/10/17 20:06 Glucose (Gluctose) 30 gm PO ONCE PRN PRN Reason: Hypoglycemia Stop: 11/10/17 20:06 Hydralazine HCl (Hydralazine) 10 mg IVP Q6HR PRN PRN Reason: Hypertension Stop: 11/11/17 09:24 Dextrose (Dextrose 5%) 1,000 mls @ 100 mls/hr IVC .Q10H PRN PRN Reason: HYPOGLYCEMIA Stop: 11/10/17 20:06 Sodium Chloride (0.9 % Sodium Chloride) 1,000 mls @ 100 mls/hr IVC .Q10H KHANG Stop: 11/11/17 16:16 Last Admin: 05/12/17 17:14 Dose: 100 mls/hr Insulin Human Lispro (Humalog) 0 units SQ TIDAC [facility] PRN Reason: Protocol Stop: 11/11/17 07:31 Last Admin: 05/12/17 17:26 Dose: 6 units Insulin Human Lispro (Humalog) 0 units SQ HS [facility] PRN Reason: Protocol Stop: 11/10/17 21:01 Last Admin: 05/12/17 22:04 Dose: 7 units Lisinopril (Zestril) 20 mg PO BID KHANG PRN Reason: Protocol Stop: 11/11/17 21:01 Last Admin: 05/12/17 22:02 Dose: 20 mg Meloxicam (Mobic) 15 mg PO DAILY KHANG Stop: 11/11/17 09:01 Last Admin: 05/12/17 10:35 Dose: 15 mg Naloxone HCl (Narcan) 0.4 mg IVP Q2MIN PRN PRN Reason: SEE COMMENTS Stop: 11/10/17 20:00 Nitroglycerin (Nitroglycerin) 0.4 mg SL Q5MIN PRN PRN Reason: Chest Pain Stop: 11/10/17 18:01 Last Admin: 05/11/17 21:22 Dose: 0.4 mg Venlafaxine HCl (Effexor Xr) 75 mg PO DAILY KHANG Stop: 11/11/17 09:01 Last Admin: 05/12/17 10:35 Dose: 75 mg - Imaging and Cardiology Echo: report reviewed Other Results: 12 hour tele: avg HR=79 SR. - EKG Interpretation EKG results cardiology: personally reviewed Consult Discharge Plan - Plan Referrals: Mary Arias, CASH ACCOUNTING CLERK [Primary Care Provider] -
[2017-05-13] MEDS ORDERED: *HR* OxyCODONE Immed Rel 5 MG TABLET PO PRN ×2 (11:53→21:47)
[2017-05-13] MEDS ORDERED: *HR* FentaNYL (PF) 100 MCG/2 ML VIAL IVP ONE ×2 (12:03→13:17)
[2017-05-13] MEDS ORDERED: *HR* FentaNYL (PF) 100 MCG/2 ML VIAL ONE ×2 (12:09→18:00)
--- NOTE | 2017-05-13 12:14 | Event Note ---
Date of Encounter: 05/13/17 Time of Encounter: 11:45 - Cardiology Event Note Seen and examined. Paged by RN--patient complaining of severe 10/10 pain at right groin after bowel movement. s/p LHC via right femoral artery with angioseal closure. BP 121/87, HR [address] Unable to give IV dilaudid due to opiate shortage. Hospitalist paged and updated --will manage pain. Obtain stat CT scan abdomen/pelvis to r/o RP bleed. Stat CBC. Discussed with Dr. Lozano who agrees with plan as above. Further recommendations to follow.
[2017-05-13] MEDS ORDERED: *HR* Morphine 2 MG/ML SYRINGE IVP ONE (12:15)
[2017-05-13] MEDS ORDERED: *HR* HYDROmorphone 4 MG TABLET PO ONE (12:15)
--- NOTE | 2017-05-13 12:42 | Internal Med Progress Note ---
Date of Encounter: 05/13/17 Time of Encounter: 12:39 - Assessment and plan (1) Right groin pain Current Visit: Yes Status: Acute Assessment and plan: I have asked for fentanyl to be given and had issues with abdomen that delivered shortage. The patient is in significant amount of pain and needed some IV pain meds and despite my efforts I had called multiple people in order to get this approved. She eventually was able to get some pain relief however she was not completely controlled. I gave her 2 more milligrams of oral Dilaudid. We are trying to get the patient to go for CAT scan to rule out hematoma or an internal bleed. She is not able to lay flat and we may have to try to get by without bedside ultrasound. She may need to be transferred to the ICU if her blood pressure continues to be on the lower side. We will check a CBC as well. Spoke to Dr. Rodriguez as well as Dr. Jones within her calf and agree with the plan. Cardiology is aware. (2) NSTEMI (non-ST elevated myocardial infarction) Current Visit: Yes Status: Acute Assessment and plan: Status post drug-eluting stent to the circumflex. Continue cardiac meds per cardiology (3) HTN (hypertension) Current Visit: Yes Status: Chronic Assessment and plan: A shows blood pressures on the lower side actually now. Hold all antihypertensives for now. Check a CBC.. Qualifiers: Hypertension type: essential hypertension Qualified Code(s): I10 - Essential (primary) hypertension (4) Diabetes mellitus Current Visit: No Status: Chronic Assessment and plan: Continue with insulin sliding scale. Continue with Accu-Cheks. Qualifiers: Diabetes mellitus type: type 2 Diabetes mellitus complication status: with hyperglycemia Diabetes mellitus fpc insulin use: unspecified asphalt smoother insulin use status Qualified Code(s): E11.65 - Type 2 diabetes mellitus with hyperglycemia (5) DVT prophylaxis Current Visit: Yes Status: Acute Assessment and plan: SCDs - Subjective Interval history: Patient seen and examined. I was called to see the patient regarding his sudden onset of significant amount of pain in the right groin area at the insertion site where she underwent a left heart catheterization yesterday. Pain was sudden in onset after she got up to use the bathroom . The patient blood pressure has some ecchymosis around the site of the insertion in the groin. She is not letting me examine the area. She is tender to palpation and light touch anywhere on that area as well as into the abdomen. She is diaphoretic. She denies any chest pain. She was initially admitted with elevated blood pressure and elevated troponins. Treated as an NSTEMI with a heparin drip and consult cardiology. She has been afebrile. - Constitutional Vitals: Temp Pulse Resp BP Pulse Ox 97.7 F 75 19 165/92 97 05/13/17 06:53 05/13/17 06:53 05/13/17 06:53 05/13/17 06:53 05/13/17 06:53 Exam: GEN: NAD CVS: RRR. S1, S2, No m/r/g RESP: CTAB ABD: Soft, NT, and palpation around the right groin and into the right-sided abdomen. +BS EXT: No edema. 2+ DP. No rashes. Right groin area with ecchymosis. No obvious bleeding. NEURO: Nonfocal Internal Medicine: Result - Labs CBC & Chem 7: 05/13/17 04:36 05/13/17 04:36 Labs: Short CBC 05/13/17 Range/Units 04:36 WBC 8.9 (4.3-11.1) K/mcL Hgb 15.2 (11.5-15.4) g/dL Hct 45.7 H (35.3-44.9) % Plt Count 152 (140-400) K/mcL Neutrophils # 5.5 (1.6-8.9) K/mcL BMP 05/13/17 04:36 Sodium 133 L Potassium 3.7 Chloride 105 Carbon Dioxide 22 L BUN 8 Creatinine 0.42 L Glucose 301 H Calcium 8.4 L - ABG Interpretation ABG results: PT/INR, D-dimer PT 12.0 Seconds (9.4-12.1) 05/11/17 18:33 D-Dimer < 215 ng/mLFEU (0-500) 05/11/17 18:33 Consult Discharge Plan - Plan Instructions: Myocardial Infarction (DC), Cellulitis (DC), Coronary Intravascular Stent Placement (DC), Diabetes Mellitus Type 2 in Adults (DC), Chronic Hypertension (DC), Cigarette Smoking and Your Health, Barrel Planer ( GEN), Coronary Intravascular Stent Placement, Barrel Planer (GEN) Additional Instructions: RISK FACTORS: STOP SMOKING: If you smoke, STOP. Smoking or tobacco use significantly increases your risk of heart disease because nicotine causes the arteries to narrow or constrict. It also causes fats to stick to the artery. Your chances of having a heart attack are greatly increased if you continue to smoke. For more information, call the education line for smoking cessation 4-967-OXFNQTK EAT A LOW FAT/CHOLESTEROL/SODIUM DIET: This diet may help reduce your chances of having a heart attack. LIFTING: Avoid lifting anything more than 10 pounds for 5-7 days Prior to straining, laughing, sneezing and/or coughing, apply manual pressure directly over insertion site. ACTIVITY: You may walk or climb stairs as tolerated You can resume sexual activity as tolerated In general, you are encouraged to engage in a minimum of 30 minutes or more of moderate intensity physical activity, such as brisk walking, daily or at least 3 -4 times weekly BATHING Do not submerge the site into water (bath tub, hot tub, swimming pool) for 1 week. This can be a source for infection into the blood stream. You may shower after 24 hours SITE CARE: After 24 hours, you may remove the dressing and leave the site open to air. Keep the site clean and dry. Clean gently and pat dry. You can expect bruising and tenderness that gradually resolve within a week or two. Return to work as instructed per your physician Resume driving as instructed per physician Keep all scheduled follow up appointments Resume medications as instructed IMPORTANT: If prescribed a Platelet Aggregation Inhibitor such as, Plavix, Brilinta or Effient: Duration of therapy is minimum one year These medications are often used in combination with Aspirin in prevention of future heart attacks Never discontinue unless consult with your Production Planner Scheduler STROKE (CVA) Risk factors for a stroke are: Age, cigarette smoking, diabetes, excessive alcohol consumption, family history, high blood pressure, overweight, physical inactivity, prior stroke, heart attack, diagnosis of carotid artery stenosis or other artery disease. Warning signs: Sudden numbness or weakness of the face, arm or leg; especially on one side of the body, sudden confusion, trouble speaking or understanding, sudden trouble seeing in one or both eyes, sudden trouble walking, dizziness, loss of balance or coordination, sudden severe headache with no cause. Call 911 or go to the Emergency Room. CONGESTIVE HEART FAILURE: If you have been diagnosed with Congestive Heart Failure (CHF) and your symptoms return, make an appointment with your physician Weigh yourself daily. Notify your physician if you have a weight gain of two or more pounds in one day or five or more pounds in one week. If you experience any difficulty breathing, please call 911 BLEEDING: Although the risk of bleeding is minimal, it can happen. If you have any bleeding from the site, apply firm pressure above the puncture site for 10-15 minutes. If the bleeding does not stop, continue manual pressure and call 911 Contact your physician if: You develop a fever greater than 101 degrees Fahrenheit Your site becomes reddened or has any drainage You have an increase in pain or burning at the site or if a large knot forms at the site. If you experience chest pain, shortness of breath, dizziness, or extreme tiredness, stop the activity and rest. Please notify your physicians office if you experience any of these symptoms and they are not relieved by rest please call 911! Referrals: Mary Arias CNP [Primary Care Provider] - 05/18/17 1:00 pm
[2017-05-13 12:58] LABS: Basophils # 0.1 K/mcL (0.0-0.2); Basophils % 0.4 %; Eosinophils # 0.2 K/mcL (0.0-0.6); Eosinophils % 1.3 %; Hematocrit 38.7 % (35.3-44.9); Immature Granulocytes % 0.6 % (0-4); Lymphocytes % 26.2 %; Mean Corpuscular HGB Conc 33.6 g/dL (31.6-35.5); Mean Corpuscular Hemoglobin 31.3 pg (28.0-33.3); Mean Platelet Volume 11.4 fL (9.4-12.4); Monocytes % 6.8 %; Platelet Count 239 K/mcL (140-400); Red Blood Count 4.16 M/mcL (3.82-4.97); Segmented Neutrophils % 64.7 %
[2017-05-13 13:25] LABS: Lymphocytes # 3.6 K/mcL (0.6-4.6)
--- NOTE | 2017-05-13 13:41 | Pulmonology Consult Note ---
<Juliet Bender - Last Filed: 05/13/17 14:22> Date of Encounter: 05/13/17 Time of Encounter: 13:20 Assessment and Plan (1) Retroperitoneal hematoma Current Visit: Yes Status: Acute Right lower quadrant Retroperitoneal hematoma demonstrated by ultrasound s/p [facility] 05/12/2017: via right femoral artery with angioseal closure Hgb 13 (15 earlier today) hemodynamically stable 165/92 ecchymosis in right groin. Patient reports severe pain in RLQ and groin Plan -STAT CT angiogram abdomen and pelvis per vascular -H&H q4h -precedex for pain -Vascular recommends IVF, and blood resuscitation, and reversal agent if needed. -vascular consulted, recommendations appreciated. -Cardiology following (2) NSTEMI (non-ST elevated myocardial infarction) Current Visit: Yes Status: Acute NSTEMI [facility] 05/12/2017: via right femoral artery with angioseal closure TTE: LVEF 60-65%, mild left ventricle or diastolic dysfunction, no significant valvular dysfunction, estimated RVSP 22mmhg, no pulmonary hypertension, normal wall motion Plan -cardiology following -continue asa, plavix (DAPT) -continue beta laura (increased dose) and Statin -cardiac rehab upon discharge (3) HTN (hypertension) Current Visit: Yes Status: Chronic History of HTN 165/62 see plan above for treatment Qualifiers: Hypertension type: essential hypertension Qualified Code(s): I10 - Essential (primary) hypertension (4) Diabetes mellitus Current Visit: No Status: Chronic History of diabetes. continue medium dose sliding scale insulin HS continue high dose sliding scale insulin TIDAC accu checks Qualifiers: Diabetes mellitus type: type 2 Diabetes mellitus complication status: with hyperglycemia Diabetes mellitus assisted insulin use: unspecified assisted insulin use status Qualified Code(s): E11.65 - Type 2 diabetes mellitus with hyperglycemia (5) DVT prophylaxis Current Visit: Yes Status: Acute EPCD History of Present Illness Consult date: 05/13/17 Requesting physician: Kaveh Griffin Reason for consult: other (retroperitoneal hematoma) Chief complaint: NSTEMI History of present illness: 51yo female with a past medical history of HTN, HLD, DM who presented to [facility] from the diabetic clinic after she reported to them that she had been having chest pressure and progressive shortness of breath for the past 2 weeks. Her blood pressure was also reported to be high at the clinic so they sent her to the ED. Troponin was found to be 0.13 and increased to 0.14. DDimer < 215 so CTA was not done. EKG: NSR, no ST changes, T-wave inversion in V1. She was then admitted to the hospital. Cardiology was consulted. TTE: EF 60-65%, mild LVDD, no PH, no significant valvular dysfunction, normal wall motion. On 2017 [facility]: via right femoral artery with angioseal closure. Today around noon she started experiencing sharp right inguinal pain. Ecchymosis was found in her right groin. Retroperitoneal ultrasound demonstrated a retroperitoneal hematoma in the right lower quadrant. Cardiology was notified and evaluated the patient then consulted the critical care team. Patient was transferred to the ICU. Vascular surgery was consulted and gave recommendations and stated they will come to evaluate the patient. Hgb decreased from 15 this morning to 13 now. The patient is hemodynamically stable. She reports severe pain in the right lower quadrant and inguinal region. She denies fever, chills, chest pain , palpitations, shortness of breath, dizziness. Past Med Surg Social Fam HX - Past Medical History Medical history: diabetes, hyperlipidemia, hypertension, other Psychiatric history: anxiety, depression - Past Surgical History Surgical History: appendectomy, , cholecystectomy, other - Social History Smoking Status: Current every day smoker Smokeless Tobacco Status: No Alcohol use: none Drug use: none - Family History Father Living Status: Still Living Hx Family Cardiac Disorders: Yes (hyperlipidemia, htn, 3x stents this year, clots, coronary stenosis) Hx Family Respiratory Disorders: No Hx Family Cancer: No Hx Family GI Disorders: No Hx Family Endocrine Disorder: Yes (diabetes) Hx Family Neuromuscular Disorders: No Hx Family Neurologic Disorders: Yes (Parkinsons, dementia) Hx Family HEENT Disorders: No Hx Family Autoimmune Disorders: No Medications and Allergies Gabapentin [Neurontin] 1,200 mg PO HS 02/24/15 [History] Gabapentin [Neurontin] 600 mg PO BID 02/24/15 [History] Ranitidine HCl [Zantac] 150 mg PO BID 02/24/15 [History] Venlafaxine HCl [Effexor Xr] 75 mg PO DAILY 02/24/15 [History] Oxycodone HCl/Acetaminophen [Percocet 10-325 mg Tablet] 1 each PO TID PRN 02/13/ 16 [History] Lisinopril [Zestril] 20 mg PO DAILY #30 tablet 03/02/17 [Rx] Albuterol Sulfate [Ventolin Hfa] 2 puff IH Q4H PRN 05/11/17 [History] Fluticasone Propionate Nasal [Flonase] 100 mcg NS DAILY PRN 05/11/17 [History] Insulin Regular, Human [Humulin R U-500 Kwikpen] 275 unit SQ TID 05/11/17 [ History] Meloxicam [Meloxicam] 15 mg PO DAILY 05/11/17 [History] Metformin HCl [Metformin HCl ER] 1,000 mg PO QPM 05/11/17 [History] 3 Allergy/AdvReac Type Severity Reaction Status Date / Time morphine Allergy Unknown See Verified 05/13/17 12:11 Comments Penicillins Allergy Hives Verified 05/11/17 16:42 hydrocodone AdvReac Hives Verified 05/11/17 16:42 All Systems: A 10-system review of systems was performed and is negative for pertinent findings except as documented above in the HPI. - Constitutional Constitutional: no chills, no fever(s) - EENT Nose, mouth and throat: no dizziness - Cardiovascular Cardiovascular: no chest pain, no lightheadedness, no palpitations - Respiratory Respiratory: no cough, no dyspnea - Gastrointestinal Gastrointestinal: abdominal pain, no nausea, no vomiting - Hematologic/Lymphatic Hematologic/Lymphatic: no easy bleeding Physical Examination General appearance: alert, appears uncomfortable Eyes: nonicteric ENT: oropharynx moist Neck: supple Effort: normal Inspection: normal Auscultation: bilateral: clear Cardiovascular: regular rate and rhythm Gastrointestinal: normoactive bowel sounds, tender Integumentary: other (ecchymosis right groin) Extremities: no cyanosis, no edema normal mental status, non-focal exam Results - Laboratory Findings CBC and BMP: 05/13/17 12:46 05/13/17 04:36 PT/INR, D-dimer PT 12.0 Seconds (9.4-12.1) 05/11/17 18:33 D-Dimer < 215 ng/mLFEU (0-500) 05/11/17 18:33 Abnormal lab findings: Abnormal lab results WBC 13.9 K/mcL (4.3-11.1) H D 05/13/17 12:46 Neutrophils # 9.0 K/mcL (1.6-8.9) H 05/13/17 12:46 Sodium 133 mEq/L (136-145) L 05/13/17 04:36 Carbon Dioxide 22 mEq/L (23-29) L 05/13/17 04:36 Creatinine 0.42 mg/dL (0.60-1.20) L 05/13/17 04:36 Glucose 301 mg/dL (70-105) H 05/13/17 04:36 POC Glucose 198 (58-89) H 05/12/17 16:18 Hemoglobin A1c 10.0 % (-5.6) H 05/12/17 03:42 Calcium 8.4 mg/dL (8.6-10.3) L 05/13/17 04:36 AST 327 Units/L (13-39) H 05/12/17 03:42 ALT 306 Units/L (7-52) H 05/12/17 03:42 Alkaline Phosphatase 106 Units/L (34-104) H 05/12/17 03:42 Troponin I 0.09 ng/mL (< 0.04) H* 05/12/17 09:12 Serum Total Protein 6.2 g/dL (6.4-8.9) L 05/12/17 03:42 Albumin 3.3 g/dL (3.5-5.7) L 05/12/17 03:42 Triglycerides 451 mg/dL (< 150) H 05/12/17 03:42 HDL Cholesterol 24 mg/dL (40-59) L 05/12/17 03:42 Cholesterol/HDL Ratio 8.0 (0-4.9) H 05/12/17 03:42 - Clinical Findings Intake & Output: Intake & Output 05/12/17 05/13/17 05/13/17 23:59 07:59 15:59 Intake Total 1000 / 1000 240 / 240 Balance 1000 / 1000 240 / 240 Weight 81.7 kg Consult Discharge Plan - Plan Instructions: Myocardial Infarction (DC), Cellulitis (DC), Coronary Intravascular Stent Placement (DC), Diabetes Mellitus Type 2 in Adults (DC), Chronic Hypertension (DC), Cigarette Smoking and Your Health, Sql Developer ( GEN), Coronary Intravascular Stent Placement, Sql Developer (GEN) Additional Instructions: RISK FACTORS: STOP SMOKING: If you smoke, STOP. Smoking or tobacco use significantly increases your risk of heart disease because nicotine causes the arteries to narrow or constrict. It also causes fats to stick to the artery. Your chances of having a heart attack are greatly increased if you continue to smoke. For more information, call the education line for smoking cessation 5-639-CYDSKUZ EAT A LOW FAT/CHOLESTEROL/SODIUM DIET: This diet may help reduce your chances of having a heart attack. LIFTING: Avoid lifting anything more than 10 pounds for 5-7 days Prior to straining, laughing, sneezing and/or coughing, apply manual pressure directly over insertion site. ACTIVITY: You may walk or climb stairs as tolerated You can resume sexual activity as tolerated In general, you are encouraged to engage in a minimum of 30 minutes or more of moderate intensity physical activity, such as brisk walking, daily or at least 3 -4 times weekly BATHING Do not submerge the site into water (bath tub, hot tub, swimming pool) for 1 week. This can be a source for infection into the blood stream. You may shower after 24 hours SITE CARE: After 24 hours, you may remove the dressing and leave the site open to air. Keep the site clean and dry. Clean gently and pat dry. You can expect bruising and tenderness that gradually resolve within a week or two. Return to work as instructed per your physician Resume driving as instructed per physician Keep all scheduled follow up appointments Resume medications as instructed IMPORTANT: If prescribed a Platelet Aggregation Inhibitor such as, Plavix, Brilinta or Effient: Duration of therapy is minimum one year These medications are often used in combination with Aspirin in prevention of future heart attacks Never discontinue unless consult with your Crane Service Technician STROKE (CVA) Risk factors for a stroke are: Age, cigarette smoking, diabetes, excessive alcohol consumption, family history, high blood pressure, overweight, physical inactivity, prior stroke, heart attack, diagnosis of carotid artery stenosis or other artery disease. Warning signs: Sudden numbness or weakness of the face, arm or leg; especially on one side of the body, sudden confusion, trouble speaking or understanding, sudden trouble seeing in one or both eyes, sudden trouble walking, dizziness, loss of balance or coordination, sudden severe headache with no cause. Call 911 or go to the Emergency Room. CONGESTIVE HEART FAILURE: If you have been diagnosed with Congestive Heart Failure (CHF) and your symptoms return, make an appointment with your physician Weigh yourself daily. Notify your physician if you have a weight gain of two or more pounds in one day or five or more pounds in one week. If you experience any difficulty breathing, please call 911 BLEEDING: Although the risk of bleeding is minimal, it can happen. If you have any bleeding from the site, apply firm pressure above the puncture site for 10-15 minutes. If the bleeding does not stop, continue manual pressure and call 911 Contact your physician if: You develop a fever greater than 101 degrees Fahrenheit Your site becomes reddened or has any drainage You have an increase in pain or burning at the site or if a large knot forms at the site. If you experience chest pain, shortness of breath, dizziness, or extreme tiredness, stop the activity and rest. Please notify your physicians office if you experience any of these symptoms and they are not relieved by rest please call 911! Referrals: Mary Arias CNP [Primary Care Provider] - 05/18/17 1:00 pm <Diego Fraser - Last Filed: 05/13/17 16:31> Date of Encounter: 05/13/17 All Systems: A 10-system review of systems was performed and is negative for pertinent findings except as documented above in the HPI. Physical Examination Vital Signs: Vital Signs, Last 4 Hours Temp Pulse Resp BP Pulse Ox 05/13/17 16:00 97.8 F 86 16 141/89 100 05/13/17 15:00 97.7 F 92 16 125/85 98 Results - Laboratory Findings CBC and BMP: 05/13/17 14:02 05/13/17 04:36 PT/INR, D-dimer PT 12.0 Seconds (9.4-12.1) 05/11/17 18:33 D-Dimer < 215 ng/mLFEU (0-500) 05/11/17 18:33 Abnormal lab findings: Abnormal lab results WBC 13.9 K/mcL (4.3-11.1) H D 05/13/17 12:46 Neutrophils # 9.0 K/mcL (1.6-8.9) H 05/13/17 12:46 Sodium 133 mEq/L (136-145) L 05/13/17 04:36 Carbon Dioxide 22 mEq/L (23-29) L 05/13/17 04:36 Creatinine 0.42 mg/dL (0.60-1.20) L 05/13/17 04:36 Glucose 301 mg/dL (70-105) H 05/13/17 04:36 POC Glucose 387 (58-89) H 05/13/17 16:02 Hemoglobin A1c 10.0 % (-5.6) H 05/12/17 03:42 Calcium 8.4 mg/dL (8.6-10.3) L 05/13/17 04:36 AST 327 Units/L (13-39) H 05/12/17 03:42 ALT 306 Units/L (7-52) H 05/12/17 03:42 Alkaline Phosphatase 106 Units/L (34-104) H 05/12/17 03:42 Troponin I 0.09 ng/mL (< 0.04) H* 05/12/17 09:12 Serum Total Protein 6.2 g/dL (6.4-8.9) L 05/12/17 03:42 Albumin 3.3 g/dL (3.5-5.7) L 05/12/17 03:42 Triglycerides 451 mg/dL (< 150) H 05/12/17 03:42 HDL Cholesterol 24 mg/dL (40-59) L 05/12/17 03:42 Cholesterol/HDL Ratio 8.0 (0-4.9) H 05/12/17 03:42 - Clinical Findings Intake & Output: Intake & Output 05/13/17 05/13/17 05/13/17 07:59 15:59 23:59 Intake Total 240 / 240 950 / 950 Output Total 200 / 200 Balance 240 / 240 750 / 750 Weight 81.7 kg - Attending Attestation I examined this patient and my medical decision-making was reviewed with the Resident Physician. I agree with the documented findings, disposition and treatment plan as described except to the extent set forth below. Patient seen and examined. Labs, radiology, chart personally reviewed. Agree with resident's history and physical, assessment, plan with following comments: DISASTER OR DAMAGE CONTROL SPECIALIST: Patient follows commands, patient appears to be in significant pain when she was evaluated in 2 NE. Hospitalist called for consultation and patient was evaluated in 2 NE. as well as ICU. I have given her more fentanyl for pain control. Pulmonary: Acceptable oxygenation and ventilation Cardiovascular: stable and suspect hypotension could be from bleeding and at this time her hemoglobin within acceptable range however we will continue close monitoring and type and cross in case she would need transfusion. machine adjuster is aware. GI: Nutrition per dietary and GI prophylaxis per routine Heme: DVT prophylaxis per routine. Patient with mechanical DVT prophylaxis. I have reviewed the ultrasound result with the radiologist and subsequently CT angiogram result was discussed with vascular surgeon and patient will need an intervention. Renal; urine out put and renal funtion reviewed Endorcine: blood glucose is monitored Lines: all lines checked and no evidence of infections Skin: skin care to prevent pressure ulcers per nursing routine care She needs to be monitored in ICU for pain control and also bleeding
[2017-05-13] MEDS ORDERED: Dexmedetomidine HCl 400 MCG/100 ML MLS IVC SCH (13:45)
[2017-05-13] MEDS ORDERED: Dexmedetomidine HCl 200 MCG/50 ML MLS IVC SCH ×2 (14:00→21:47)
[2017-05-13] MEDS ORDERED: Insulin LISPRO 300 UNITS/3 ML VIAL SQ SCH (14:01)
[2017-05-13 14:26] LABS: Hematocrit 37.6 % (35.3-44.9); Hemoglobin 12.6 g/dL (11.5-15.4)
[2017-05-13] MEDS ORDERED: *HR* FentaNYL (PF) 100 MCG/2 ML VIAL IVP PRN ×2 (15:03→21:47)
[2017-05-13] MEDS ORDERED: Heparin 1,000 UNITS/500 mL 500 ML ONE ×2 (16:30→18:37)
[2017-05-13] MEDS ORDERED: Vancomycin 1,000 MG VIAL ONE ×2 (16:31→17:12)
[2017-05-13] MEDS: *HR* FentaNYL (PF) 100 MCG/2 ML VIAL IVP PRN ×2 (16:40→21:10)
[2017-05-13] MEDS ORDERED: Lidocaine -MPF 4% 5 ML AMPUL ONE (16:46)
[2017-05-13] MEDS ORDERED: *HR* Propofol 200 MG/20 ML VIAL IVP ONE (16:50)
[2017-05-13] MEDS ORDERED: *HR* Midazolam HCl 2 MG/2 ML VIAL ONE (16:50)
[2017-05-13] MEDS ORDERED: Lidocaine -MPF 2% 2 ML VIAL ONE (16:51)
[2017-05-13] MEDS ORDERED: *HR* Rocuronium Bromide 50 MG/5 ML VIAL ONE (16:51)
[2017-05-13] MEDS ORDERED: *HR* Heparin 5,000 UNIT/ML VIAL ONE (16:53)
--- NOTE | 2017-05-13 17:01 | Vascular/Endovasc Consult Note ---
Date of Encounter: 05/13/17 Time of Encounter: 16:10 Assessment and Plan (1) Pseudoaneurysm of right femoral artery Current Visit: Yes Status: Acute The pathophysiology and natural history of pseudoaneurysms was discussed with the patient and all questions were answered. The patient has a right lower extremity pseudoaneurysm that developed after a recent left heart catherterization. The pseudoaneurysm has a broad base and appears to be adjacent to the inguinal ligament. Surgical repair is recommended to reduce her risk of . The risks, benefits and alternatives were dicussed and all questions were answered. She expressed understanding and wishes to proceed. 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 Qualified Code(s): E11.65 - Type 2 diabetes mellitus with hyperglycemia (4) Tobacco abuse Current Visit: No Status: Chronic (5) NSTEMI (non-ST elevated myocardial infarction) Current Visit: Yes Status: Acute (6) Hyperlipidemia Current Visit: Yes Status: Chronic Qualifiers: Hyperlipidemia type: pure hypercholesterolemia Qualified Code(s): E78.00 - Pure hypercholesterolemia, unspecified; E78.0 - Pure hypercholesterolemia (7) Retroperitoneal hematoma Current Visit: Yes Status: Acute - History of Present Illness Consult date: 05/13/17 Requesting physician: Juliet Bender Consult reason: Retroperitoneal hematoma Chief complaint: Right flank pain History of present illness: Ms. Taylor is a 51 year old female who presented to the ER with chest pain. She underwent a left heart cath on 05/12/17 via a right femoral approach. The patient had adrug eluting stent placed and then went to the floor. She complained of right flank pain and tenderness of increasing intensity. The patient underwent an ultrasound and was found to have a retroperitoneal hematoma. She was transferred to the ICU and vascular surgery was consulted for further evaluation. At the time of evaluation, the patient is hemodynamically stable. She complains of significant right flank pain. She denies chest pain or shortness of breath. Past Med Surg Social Fam HX - Past Medical History Medical history: diabetes, hyperlipidemia, hypertension, other Psychiatric history: anxiety, depression - Past Surgical History Surgical History: appendectomy, , cholecystectomy, other - Social History Smoking Status: Current every day smoker Smokeless Tobacco Status: No Alcohol use: none Drug use: none - Family History Father Living Status: Still Living Hx Family Cardiac Disorders: Yes (hyperlipidemia, htn, 3x stents this year, clots, coronary stenosis) Hx Family Respiratory Disorders: No Hx Family Cancer: No Hx Family GI Disorders: No Hx Family Endocrine Disorder: Yes (diabetes) Hx Family Neuromuscular Disorders: No Hx Family Neurologic Disorders: Yes (Parkinsons, dementia) Hx Family HEENT Disorders: No Hx Family Autoimmune Disorders: No Medications and Allergies Gabapentin [Neurontin] 1,200 mg PO HS 02/24/15 [History] Gabapentin [Neurontin] 600 mg PO BID 02/24/15 [History] Ranitidine HCl [Zantac] 150 mg PO BID 02/24/15 [History] Venlafaxine HCl [Effexor Xr] 75 mg PO DAILY 02/24/15 [History] Oxycodone HCl/Acetaminophen [Percocet 10-325 mg Tablet] 1 each PO TID PRN [History] Lisinopril [Zestril] 20 mg PO DAILY #30 tablet 03/02/17 [Rx] Albuterol Sulfate [Ventolin Hfa] 2 puff IH Q4H PRN 05/11/17 [History] Fluticasone Propionate Nasal [Flonase] 100 mcg NS DAILY PRN 05/11/17 [History] Insulin Regular, Human [Humulin R U-500 Kwikpen] 275 unit SQ TID 05/11/17 [ History] Meloxicam [Meloxicam] 15 mg PO DAILY 05/11/17 [History] Metformin HCl [Metformin HCl ER] 1,000 mg PO QPM 05/11/17 [History] 3 Allergy/AdvReac Type Severity Reaction Status Date / Time morphine Allergy Unknown See Verified 05/13/17 12:11 Comments Penicillins Allergy Hives Verified 05/11/17 16:42 hydrocodone AdvReac Hives Verified 05/11/17 16:42 All Systems Review: A 10-system review of systems was performed and is negative for pertinent findings except as documented above in the HPI. Exam Vital Signs, Last 4 Hours Temp Pulse Resp BP Pulse Ox 05/13/17 16:00 97.8 F 86 16 141/89 100 05/13/17 15:00 97.7 F 92 16 125/85 98 General: Present: Conversant HEENT: Present: Pupils equal Neck: Absent: JVD, Lymphadenopathy, Left Carotid bruit, Right Carotid bruit Cardiac: Present: Reg Rate and Rhythm, Normal S1 and S2 Lungs: Present: Normal Breath Sounds, No Wheeze, Rales, Rhonchi Neuro: Present: Alert and responsive, No focal deficits noted, Motor nerves grossly intact, Sensory nerves grossly intact Abdomen: Present: Soft, Other (right flank tenderness, right inguinal eccyhmosis , no hematoma at right groin) Vascular: Present: Normal capillary refill, Pulse, normal. Absent: Cyanosis, Edema Skin: Present: No rashes noted on visualized skin Musculoskeletal: Present: No Chest Wall Tenderness Consult Discharge Plan - Plan
[2017-05-13] MEDS ORDERED: Albuterol 2.5 MG/3 ML NEBULIZER IH ONE (17:05)
[2017-05-13] MEDS ORDERED: Albuterol 2.5 MG/3 ML NEBULIZER ONE (17:06)
--- NOTE | 2017-05-13 17:09 | Anesthesia Evaluation PreOp ---
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 HX Other Medical History: Denies Any Significant HX Anesthesia History: No Prior Anesthetic Complications : No Alcohol Use: none Drug use: none Medications and Allergies Gabapentin [Neurontin] 1,200 mg PO HS 02/24/15 [History] Gabapentin [Neurontin] 600 mg PO BID 02/24/15 [History] Ranitidine HCl [Zantac] 150 mg PO BID 02/24/15 [History] Venlafaxine HCl [Effexor Xr] 75 mg PO DAILY 02/24/15 [History] Oxycodone HCl/Acetaminophen [Percocet 10-325 mg Tablet] 1 each PO TID PRN [History] Lisinopril [Zestril] 20 mg PO DAILY #30 tablet 03/02/17 [Rx] Albuterol Sulfate [Ventolin Hfa] 2 puff IH Q4H PRN 05/11/17 [History] Fluticasone Propionate Nasal [Flonase] 100 mcg NS DAILY PRN 05/11/17 [History] Insulin Regular, Human [Humulin R U-500 Kwikpen] 275 unit SQ TID 05/11/17 [ History] Meloxicam [Meloxicam] 15 mg PO DAILY 05/11/17 [History] Metformin HCl [Metformin HCl ER] 1,000 mg PO QPM 05/11/17 [History] 3 Allergy/AdvReac Type Severity Reaction Status Date / Time morphine Allergy Unknown See Verified 05/13/17 12:11 Comments Penicillins Allergy Hives Verified 05/11/17 16:42 hydrocodone AdvReac Hives Verified 05/11/17 16:42 - Meds/Allergy Pre-op Review Medications Reviewed: Yes Allergies Reviewed: Yes Beta Blockers on Current Med List: Yes Anesthesia Results - Labs 05/13/17 14:02 05/13/17 04:36 Laboratory Tests 10/03/14 03/11/15 03/11/15 Unknown 10:33 10:33 Hgb 14.9 Hct 43.1 Plt Count 351 Sodium 132 L Potassium 4.4 BUN 11 Creatinine 0.80 POC Creatinine 0.70 POC Glucose Hemoglobin A1c 03/13/15 03/13/15 05/13/17 03:09 06:29 04:36 Hgb Hct Plt Count Sodium 133 L Potassium 3.7 BUN 8 Creatinine POC Creatinine POC Glucose 132 H Hemoglobin A1c 8.7 05/13/17 05/13/17 12:46 14:02 Hgb 12.6 Hct 37.6 Plt Count 239 D Sodium Potassium BUN Creatinine POC Creatinine POC Glucose Hemoglobin A1c - Imaging Additional studies: ECHO 60% SHMUEL X1 Anesthesia Exam Vital Signs/O2 Sat/Glucose, Most Current Temp Pulse Resp BP Pulse Ox 05/13/17 16:00 97.8 F 86 16 141/89 100 05/13/17 15:00 97.7 F 92 16 125/85 98 Height: 4'11 Weight: 180 lbs NPO (# of Hours): 0800 today Pain Scale: 0 - HEENT Pupil (Motor): Pupils equal, EOMI Mallampati: III Teeth: Normal Oral Opening: Greater than 3 - 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
[2017-05-13] MEDS: Famotidine 20 MG TABLET PO SCH ×2 (17:12→21:18)
[2017-05-13] MEDS: Aspirin Enteric Coated 81 MG Tablet PO SCH (17:12)
[2017-05-13] MEDS: Venlafaxine XR (24 HR) 75 MG CAP.ER.24H PO SCH (17:12)
[2017-05-13] MEDS: Lisinopril 20 MG TABLET PO SCH ×2 (17:13)
[2017-05-13] MEDS ORDERED: *HR* PHENYLEPHRINE 1,000 MCG/10 ML SYRINGE IVP ONE (17:32)
[2017-05-13] MEDS ORDERED: *HR* Phenylephrine 10 MG/ML VIAL ONE (17:54)
[2017-05-13] MEDS ORDERED: Ondansetron 4 MG/2 ML VIAL ONE (18:08)
[2017-05-13] MEDS ORDERED: Dexamethasone 4 MG/ML VIAL ONE (18:08)
--- NOTE | 2017-05-13 19:12 | Anesthesia Procedures ---
Date of Encounter: 05/13/17 Time of Encounter: 17:05 Procedures: Anesthesia - Central Line Placement Right IJ Consent obtained: written consent Time out performed: Yes Patient placed on monitor/pulse ox: Yes prep: mask, gown, gloves Central line prep: Povidone-Iodine 1% Ultrasound used for placement: No Technique: Seldinger Lumen Inserted: triple Size / Length: 7 Fr / 16 cm Post procedure: sutured in place, sterile dressing applied Patient tolerated procedure: no complications Complications: none Vitals: Vital Signs/O2 Sat/Glucose, Most Current Temp Pulse Resp BP Pulse Ox 05/13/17 16:00 97.8 F 86 16 141/89 100
--- NOTE | 2017-05-13 19:44 | Operative Note ---
Date of procedure: 05/13/17 Pre-op diagnosis: Right external iliac artery laceration Post-op diagnosis: same Procedure: Direct repair of right external iliac artery Complications: None Anesthesia: GETA Surgeon: Ruddy Fulton Was there an insurance legal assistant present: No Estimated blood loss (cc): 350 Specimen: Right groin lymph node Condition: stable Disposition: ICU Procedure in Detail: Indications: The patient is a 51 year old female who recently underwent a left heart catheterization via a right femoral artery access. The patient required coronary stenting. After the procedure she developed a right retroperitoneal hematoma. A CT scan revealed a large hematoma with actie extravasation of contrast. Emergent surgical repair was recommended to reduce her risk of limb loss and . Procedure: The patient was identified in the preoperative area. The risks, benefits, and alternatives of the procedure were discussed. All questions were answered. The patient was taken to the operating room and placed in supine position on the operating room table. After the induction of general endotracheal anesthesia, he was cleaned and draped in normal sterile fashion. An oblique incision was made over the right groin sharply. Hemostasis was obtained with electrocautery. Through a process of blunt, sharp, and electrocautery dissection, the right femoral vessels were dissected circumferentially and surrounded with vessel loops. The dissection was extended proximally under the inguinal ligament. A large organized hematoma was encountered. As the dissection proceeded more proximally along the external iliac artery, vigorous bleeding was encountered. Direct pressure was applied to the arterial laceration site to maintain hemostasis. The external iliac artery was then carefully dissected proximal to the laceration. A vascular clamp was applied proximally and a vessel loop was applied distally. The allowed for complete hemostasis. The arterial laceration was noted to be on the anteromedial portion of the external iliac artery. The laceration was then repaired with a running 6-0 prolene. The clamp and vessel loop were released and flow was restored. Polyphasic signals were noted in the external iliac and femoral arteries. The wound was irrigated with antibiotic-containing saline. Platelet rich and platelet poor plasma were infused into the wound. Meticulous hemostasis was obtained throughout the wound with electrocautery. The wound was reapproximated with layers of 2-0 and 3-0 Vicryl. Skin was reapproximated with 3-0 Monocryl. A sterile dressing was applied. The patient was extubated and taken to the intensive care unit in stable condition.
[2017-05-13] MEDS: 0.9 % Sodium Chloride 1,000 ML IVC SCH ×3 (19:50→19:53)
[2017-05-13] MEDS ORDERED: Insulin LISPRO 300 UNITS/3 ML VIAL SQ ONE (19:57)
[2017-05-13] MEDS ORDERED: Gabapentin 300 MG CAPSULE PO SCH (21:30)
[2017-05-13] MEDS ORDERED: 0.9 % Sodium Chloride 1,000 ML IVC SCH (21:47)
[2017-05-13] MEDS ORDERED: Acetaminophen 325 MG TABLET PO PRN (21:47)
[2017-05-13] MEDS ORDERED: D5% in Water 1,000 ML IVC PRN (21:47)
[2017-05-13] MEDS ORDERED: Nitroglycerin 0.4 MG TAB.SUBL SL PRN (21:47)
[2017-05-13] MEDS ORDERED: Ondansetron 4 MG/2 ML VIAL IVP PRN (21:47)
[2017-05-13] MEDS ORDERED: Naloxone 0.4 MG/ML INJ IVP PRN ×2 (21:47)
[2017-05-13] MEDS ORDERED: *HR* Labetalol 20 MG/4 ML SYRINGE IVP PRN (21:47)
[2017-05-13] MEDS ORDERED: Fluticasone Propionate Nasal 50 MCG/SPRAY BOTTLE NS PRN (21:47)
[2017-05-13] MEDS ORDERED: Dextrose Gel 15 GM/37.5 ML TUBE PO PRN ×2 (21:47)
[2017-05-13] MEDS ORDERED: *HR* Dextrose 50 % in Water (Syg) 50 ML SYRINGE IVP PRN (21:47)
[2017-05-13] MEDS: Gabapentin 300 MG CAPSULE PO SCH ×2 (22:18→22:21)
[2017-05-13 22:55] LABS: Hematocrit 31.9 % (35.3-44.9)
[2017-05-13 22:57] LABS: Hemoglobin 10.8 g/dL (11.5-15.4)
[2017-05-14] MEDS ORDERED: Insulin LISPRO 300 UNITS/3 ML VIAL SQ ONE (00:11)
[2017-05-14 04:10] LABS: Basophils # 0.1 K/mcL (0.0-0.2); Basophils % 0.3 %; Eosinophils % 0.1 %; Hematocrit 26.9 % (35.3-44.9); Immature Granulocytes % 0.8 % (0-4); Lymphocytes # 3.6 K/mcL (0.6-4.6); Lymphocytes % 18.8 %; Mean Corpuscular HGB Conc 33.5 g/dL (31.6-35.5); Mean Corpuscular Hemoglobin 30.9 pg (28.0-33.3); Mean Corpuscular Volume 92.4 fL (83.0-100.0); Mean Platelet Volume 11.1 fL (9.4-12.4); Monocytes # 1.2 K/mcL (0.0-1.3); Monocytes % 6.4 %; Neutrophils # 13.9 K/mcL (1.6-8.9); Platelet Count 168 K/mcL (140-400); Red Blood Count 2.91 M/mcL (3.82-4.97); Red Cell Distribution Width 14.3 % (11.5-14.5); Segmented Neutrophils % 73.6 %
[2017-05-14] MEDS ORDERED: Fluconazole 100 MG TABLET PO ONE (04:12)
[2017-05-14 05:03] LABS: BUN/Creatinine Ratio 34 (6-26); Blood Urea Nitrogen 22 mg/dL (6-20); Calcium 7.5 mg/dL (8.6-10.3); Carbon Dioxide 21 mEq/L (23-29); Chloride 109 mEq/L (98-107); Glucose 268 mg/dL (70-105); Magnesium 1.7 mg/dL (1.6-2.6); Osmolality,Calculated 291 (280-300); Potassium 4.3 mEq/L (3.5-5.1); Sodium 134 mEq/L (136-145); eGFR For African Americans > 60 (> 60); eGFR For Non-African Americans > 60 (> 60)
[2017-05-14] MEDS: *HR* OxyCODONE Immed Rel 5 MG TABLET PO PRN ×3 (06:28→19:50)
[2017-05-14] MEDS ORDERED: Insulin LISPRO 300 UNITS/3 ML VIAL SQ SCH ×3 (07:30→21:00)
--- NOTE | 2017-05-14 07:54 | Pulmonology Progress Note ---
<Diego Fraser M - Last Filed: 05/14/17 08:03> Date of Encounter: 05/14/17 Objective PUL Vital signs: Last Vital Signs Temp 98.4 F 05/14/17 04:00 Pulse 79 05/14/17 06:00 Resp 20 05/14/17 06:00 BP 106/67 05/14/17 06:00 Pulse Ox 95 05/14/17 06:00 Results - Laboratory Findings CBC and BMP: 05/14/17 03:57 05/14/17 03:57 PT/INR, D-dimer PT 12.0 Seconds (9.4-12.1) 05/11/17 18:33 D-Dimer < 215 ng/mLFEU (0-500) 05/11/17 18:33 Abnormal lab findings: Abnormal lab results WBC 18.9 K/mcL (4.3-11.1) H 05/14/17 03:57 RBC 2.91 M/mcL (3.82-4.97) L 05/14/17 03:57 Hgb 9.0 g/dL (11.5-15.4) L D 05/14/17 03:57 Hct 26.9 % (35.3-44.9) L 05/14/17 03:57 Neutrophils # 13.9 K/mcL (1.6-8.9) H 05/14/17 03:57 Sodium 134 mEq/L (136-145) L 05/14/17 03:57 Chloride 109 mEq/L (98-107) H 05/14/17 03:57 Carbon Dioxide 21 mEq/L (23-29) L 05/14/17 03:57 BUN 22 mg/dL (6-20) H 05/14/17 03:57 BUN/Creatinine Ratio 34 (6-26) H 05/14/17 03:57 Glucose 268 mg/dL (70-105) H 05/14/17 03:57 POC Glucose 268 (58-89) H 05/14/17 07:14 Hemoglobin A1c 10.0 % (-5.6) H 05/12/17 03:42 Calcium 7.5 mg/dL (8.6-10.3) L 05/14/17 03:57 AST 327 Units/L (13-39) H 05/12/17 03:42 ALT 306 Units/L (7-52) H 05/12/17 03:42 Alkaline Phosphatase 106 Units/L (34-104) H 05/12/17 03:42 Troponin I 0.09 ng/mL (< 0.04) H* 05/12/17 09:12 Serum Total Protein 6.2 g/dL (6.4-8.9) L 05/12/17 03:42 Albumin 3.3 g/dL (3.5-5.7) L 05/12/17 03:42 Triglycerides 451 mg/dL (< 150) H 05/12/17 03:42 HDL Cholesterol 24 mg/dL (40-59) L 05/12/17 03:42 Cholesterol/HDL Ratio 8.0 (0-4.9) H 05/12/17 03:42 - Clinical Findings Intake & Output: Intake & Output 05/13/17 05/14/17 05/14/17 23:59 07:59 15:59 Intake Total 1250 / 1250 750 / 750 Output Total 550 / 550 450 / 450 Balance 700 / 700 300 / 300 Consult Discharge Plan - Plan Instructions: Myocardial Infarction (DC), Cellulitis (DC), Coronary Intravascular Stent Placement (DC), Diabetes Mellitus Type 2 in Adults (DC), Chronic Hypertension (DC), Cigarette Smoking and Your Health, Rig Site Engineer ( GEN), Coronary Intravascular Stent Placement, Rig Site Engineer (GEN) Additional Instructions: RISK FACTORS: STOP SMOKING: If you smoke, STOP. Smoking or tobacco use significantly increases your risk of heart disease because nicotine causes the arteries to narrow or constrict. It also causes fats to stick to the artery. Your chances of having a heart attack are greatly increased if you continue to smoke. For more information, call the education line for smoking cessation 1-029-XYEDOSS EAT A LOW FAT/CHOLESTEROL/SODIUM DIET: This diet may help reduce your chances of having a heart attack. LIFTING: Avoid lifting anything more than 10 pounds for 5-7 days Prior to straining, laughing, sneezing and/or coughing, apply manual pressure directly over insertion site. ACTIVITY: You may walk or climb stairs as tolerated You can resume sexual activity as tolerated In general, you are encouraged to engage in a minimum of 30 minutes or more of moderate intensity physical activity, such as brisk walking, daily or at least 3 -4 times weekly BATHING Do not submerge the site into water (bath tub, hot tub, swimming pool) for 1 week. This can be a source for infection into the blood stream. You may shower after 24 hours SITE CARE: After 24 hours, you may remove the dressing and leave the site open to air. Keep the site clean and dry. Clean gently and pat dry. You can expect bruising and tenderness that gradually resolve within a week or two. Return to work as instructed per your physician Resume driving as instructed per physician Keep all scheduled follow up appointments Resume medications as instructed IMPORTANT: If prescribed a Platelet Aggregation Inhibitor such as, Plavix, Brilinta or Effient: Duration of therapy is minimum one year These medications are often used in combination with Aspirin in prevention of future heart attacks Never discontinue unless consult with your Video Library Assistant STROKE (CVA) Risk factors for a stroke are: Age, cigarette smoking, diabetes, excessive alcohol consumption, family history, high blood pressure, overweight, physical inactivity, prior stroke, heart attack, diagnosis of carotid artery stenosis or other artery disease. Warning signs: Sudden numbness or weakness of the face, arm or leg; especially on one side of the body, sudden confusion, trouble speaking or understanding, sudden trouble seeing in one or both eyes, sudden trouble walking, dizziness, loss of balance or coordination, sudden severe headache with no cause. Call 911 or go to the Emergency Room. CONGESTIVE HEART FAILURE: If you have been diagnosed with Congestive Heart Failure (CHF) and your symptoms return, make an appointment with your physician Weigh yourself daily. Notify your physician if you have a weight gain of two or more pounds in one day or five or more pounds in one week. If you experience any difficulty breathing, please call 911 BLEEDING: Although the risk of bleeding is minimal, it can happen. If you have any bleeding from the site, apply firm pressure above the puncture site for 10-15 minutes. If the bleeding does not stop, continue manual pressure and call 911 Contact your physician if: You develop a fever greater than 101 degrees Fahrenheit Your site becomes reddened or has any drainage You have an increase in pain or burning at the site or if a large knot forms at the site. If you experience chest pain, shortness of breath, dizziness, or extreme tiredness, stop the activity and rest. Please notify your physicians office if you experience any of these symptoms and they are not relieved by rest please call 911! Referrals: Mary Arias, DIRECTOR OF SERVICES [Primary Care Provider] - 05/18/17 1:00 pm - Attending Attestation I examined this patient and my medical decision-making was reviewed with the Resident Physician. I agree with the documented findings, disposition and treatment plan as described except to the extent set forth below. Patient seen and examined. Labs, radiology, chart personally reviewed. 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 Patient had repair of her artery by vascular surgeon and her pain is under better control with retroperitoneal hematoma. The patient stable enough to be transferred to the floor. GI: Nutrition per dietary and GI prophylaxis per routine Heme: DVT prophylaxis per routine continue monitoring H&H. Renal; urine out put and renal funtion reviewed Endorcine: blood glucose is monitored Lines: all lines checked and no evidence of infections Skin: skin care to prevent pressure ulcers per nursing routine care <Juliet Bender - Last Filed: 05/14/17 08:40> Date of Encounter: 05/14/17 Time of Encounter: 07:54 Assessment and Plan (1) Retroperitoneal hematoma Current Visit: Yes Status: Acute Right lower quadrant Retroperitoneal hematoma demonstrated by ultrasound s/p [facility] 05/12/2017: via right femoral artery with angioseal closure Hgb 9 (decreased from 10.8) hemodynamically stable 130/69 ecchymosis in right groin. Patient reports improvement of pain in RLQ and groin CT angiogram abdomen/ pelvis- demonstrated right-sided retroperitoneal abdominal and pelvic hematomas are confluence along with pseudoaneurysm from the right common femoral artery. s/p 05/13/2017 direct repair of right external iliac artery vascular surgery Plan -recheck of H&H pending -transfer back to 2NE -oxycodone prn severe pain - acetaminophen PRN pain -vascular consulted, recommendations appreciated. -Cardiology following (2) NSTEMI (non-ST elevated myocardial infarction) Current Visit: Yes Status: Acute NSTEMI [facility] 05/12/2017: via right femoral artery with angioseal closure TTE: LVEF 60-65%, mild left ventricle or diastolic dysfunction, no significant valvular dysfunction, estimated RVSP 22mmhg, no pulmonary hypertension, normal wall motion Plan -cardiology following -continue asa, plavix (DAPT) -continue beta laura (increased dose) and Statin -cardiac rehab upon discharge (3) HTN (hypertension) Current Visit: Yes Status: Chronic History of HTN BP stable see plan above for treatment Qualifiers: Hypertension type: essential hypertension Qualified Code(s): I10 - Essential (primary) hypertension (4) Diabetes mellitus Current Visit: No Status: Chronic History of diabetes. continue medium dose sliding scale insulin HS continue high dose sliding scale insulin TIDAC accu checks Qualifiers: Diabetes mellitus type: type 2 Diabetes mellitus complication status: with hyperglycemia Diabetes mellitus custodial insulin use: unspecified custodial insulin use status Qualified Code(s): E11.65 - Type 2 diabetes mellitus with hyperglycemia (5) DVT prophylaxis Current Visit: Yes Status: Acute EPCD Subjective Principal diagnosis: NSTEMI, HTN urgency Interval history: 51yo female presented with chest pain found to have an NSTEMI. On 05/12/2017 she had a LHC: via right femoral artery with angioseal closure. the next day she started complaining of right lower quadrant and inguinal pain. Ecchymosis was present in the right inguinal region. She was transferred to the ICU vascular surgery was consulted. CT angiogram abdomen and pelvis demonstrated a confluent retroperitoneal hematoma in the abdomen and pelvis with a pseudoaneurysm. On 05/13/2017 she was taken to the OR for direct repair of right external iliac artery. She was given one unit PRBC yesterday. In the evening she started complaining of increased right flank pain. Hgb decreased from 10.8 to 9. A repeat CTA abdomen and pelvis was ordered which demonstrated slight decrease in size of retroperitoneal hematoma. Serial H&H monitored. Objective PUL Vital signs: Last Vital Signs Temp 98.4 F 05/14/17 04:00 Pulse 79 05/14/17 06:00 Resp 20 05/14/17 06:00 BP 106/67 05/14/17 06:00 Pulse Ox 95 05/14/17 06:00 General appearance: no acute distress, alert Eyes: nonicteric ENT: oropharynx moist Neck: supple Effort: normal Auscultation: bilateral: clear Cardiovascular: regular rate and rhythm Gastrointestinal: normoactive bowel sounds, soft, tender Integumentary: other (Ecchymosis right inguinal region) Extremities: no cyanosis, no edema normal mental status, non-focal exam mood appropriate, affect normal Results - Laboratory Findings CBC and BMP: 05/14/17 03:57 05/14/17 03:57 PT/INR, D-dimer PT 12.0 Seconds (9.4-12.1) 05/11/17 18:33 D-Dimer < 215 ng/mLFEU (0-500) 05/11/17 18:33 Abnormal lab findings: Abnormal lab results WBC 18.9 K/mcL (4.3-11.1) H 05/14/17 03:57 RBC 2.91 M/mcL (3.82-4.97) L 05/14/17 03:57 Hgb 9.0 g/dL (11.5-15.4) L D 05/14/17 03:57 Hct 26.9 % (35.3-44.9) L 05/14/17 03:57 Neutrophils # 13.9 K/mcL (1.6-8.9) H 05/14/17 03:57 Sodium 134 mEq/L (136-145) L 05/14/17 03:57 Chloride 109 mEq/L (98-107) H 05/14/17 03:57 Carbon Dioxide 21 mEq/L (23-29) L 05/14/17 03:57 BUN 22 mg/dL (6-20) H 05/14/17 03:57 BUN/Creatinine Ratio 34 (6-26) H 05/14/17 03:57 Glucose 268 mg/dL (70-105) H 05/14/17 03:57 POC Glucose 268 (58-89) H 05/14/17 07:14 Hemoglobin A1c 10.0 % (-5.6) H 05/12/17 03:42 Calcium 7.5 mg/dL (8.6-10.3) L 05/14/17 03:57 AST 327 Units/L (13-39) H 05/12/17 03:42 ALT 306 Units/L (7-52) H 05/12/17 03:42 Alkaline Phosphatase 106 Units/L (34-104) H 05/12/17 03:42 Troponin I 0.09 ng/mL (< 0.04) H* 05/12/17 09:12 Serum Total Protein 6.2 g/dL (6.4-8.9) L 05/12/17 03:42 Albumin 3.3 g/dL (3.5-5.7) L 05/12/17 03:42 Triglycerides 451 mg/dL (< 150) H 05/12/17 03:42 HDL Cholesterol 24 mg/dL (40-59) L 05/12/17 03:42 Cholesterol/HDL Ratio 8.0 (0-4.9) H 05/12/17 03:42 - Clinical Findings Intake & Output: Intake & Output 05/13/17 05/13/17 05/14/17 15:59 23:59 07:59 Intake Total 240 / 240 1250 / 1250 750 / 750 Output Total 550 / 550 450 / 450 Balance 240 / 240 700 / 700 300 / 300 - VTE Documentation of Mechanical Device: Intermittent pneumatic compression device
[2017-05-14] MEDS: Gabapentin 300 MG CAPSULE PO SCH ×3 (08:02→19:49)
[2017-05-14 08:25] LABS: Hematocrit 26.1 % (35.3-44.9); Hemoglobin 8.8 g/dL (11.5-15.4)
[2017-05-14] MEDS ORDERED: Aspirin Enteric Coated 81 MG Tablet PO SCH (09:00)
[2017-05-14] MEDS ORDERED: Venlafaxine XR (24 HR) 75 MG CAP.ER.24H PO SCH (09:00)
[2017-05-14] MEDS ORDERED: Famotidine 20 MG TABLET PO SCH (09:00)
[2017-05-14] MEDS ORDERED: Lisinopril 20 MG TABLET PO SCH (09:00)
[2017-05-14] MEDS ORDERED: Ondansetron 4 MG/2 ML VIAL IVP PRN (11:41)
[2017-05-14] MEDS ORDERED: Dextrose Gel 15 GM/37.5 ML TUBE PO PRN ×2 (11:41)
[2017-05-14] MEDS ORDERED: Nitroglycerin 0.4 MG TAB.SUBL SL PRN (11:41)
[2017-05-14] MEDS ORDERED: *HR* Dextrose 50 % in Water (Syg) 50 ML SYRINGE IVP PRN (11:41)
[2017-05-14] MEDS ORDERED: *HR* Labetalol 20 MG/4 ML SYRINGE IVP PRN (11:41)
[2017-05-14] MEDS ORDERED: Fluticasone Propionate Nasal 50 MCG/SPRAY BOTTLE NS PRN (11:41)
[2017-05-14] MEDS ORDERED: D5% in Water 1,000 ML IVC PRN (11:41)
[2017-05-14] MEDS ORDERED: Acetaminophen 325 MG TABLET PO PRN (11:41)
[2017-05-14] MEDS ORDERED: Naloxone 0.4 MG/ML INJ IVP PRN ×2 (11:41)
--- NOTE | 2017-05-14 13:08 | Cardiology Progress Note ---
Date of Encounter: 05/14/17 Time of Encounter: 12:00 Assessment and Plan (1) NSTEMI (non-ST elevated myocardial infarction) Current Visit: Yes Status: Acute Per cardiology: -C: s/p successful PCI to LCx; otherwise non-obstructive CAD. -TTE: EF 60-65%, mild LVDD, no PH, no significant valvular dysfunction, normal wall motion. -Denies chest pain. -Post PCI discharge instruction discussed including care of care site and importance of uninterrupted DAPT (asa + plavix); patient verbalized understanding. -On statin and beta laura. -Risk factor modification emphasized including tobacco cessation, Na restricted diet, daily exercise. -S/p surgical repair of right iliac artery. -Will continue to monitor. (2) Pseudoaneurysm of right femoral artery Current Visit: Yes Status: Acute Per cardiology: -S/p surgical repair (3) Retroperitoneal hematoma Current Visit: Yes Status: Acute Per cardiology: -S/p surgical repair. (4) Tobacco abuse Current Visit: No Status: Chronic Per cardiology: -Smoking cessation counseling provided. Discussion w patient/family: The assessment and plan as outlined above was discussed with the patient who expressed understanding and agreement. All questions were answered. Thank you for involving us in the care of your patient. Please call with any questions. Discussed and reviewed with . Subjective Principal diagnosis: NSTEMI, HTN urgency Interval history: Patient is s/p surgical repair of right iliac artery. Patient states she feels much better today. Denies chest pain. Reports pain is controlled. Objective Vital Signs, Last 4 Hours Pulse Resp BP Pulse Ox 05/14/17 12:00 83 16 96/54 93 General: Conversant, No Apparent Distress HEENT: Atraumatic, Normocephaly, Mucus Membranes Moist Neck: No JVD, Normal carotid pulses Cardiac: Reg Rate and Rhythm, Normal S1 and S2, No Murmur Lungs: Normal Breath Sounds, No Wheeze, Rales, Rhonchi Neuro: Alert and responsive, No focal deficits noted Abdomen: Soft, Non-Tender Skin: No rashes noted on visualized skin, Other (Righ groin with dressing noted. Bruising noted. ) Musculoskeletal: No Chest Wall Tenderness Extremities: No Clubbing, No Cyanosis, No Edema, Normal Pulses Results 05/14/17 08:15 05/14/17 03:57 Lab Results Impressions Abdomen Ultrasound 05/13/17 11:44 IMPRESSION: 1. Findings concerning for a right lower quadrant retroperitoneal hemorrhage measuring approximately 10 x [address] could be used to fully characterize. Critical results were called by Dr. Jonathan Peters MD to Dr. Brunner On 05/13/2017 at 13:45. D/ / 05/13/2017 14:02:35 Maciel Kuhn MD / jessica Interpreting Provider: Maciel Kuhn MD Retroperitoneum Ultrasound 05/13/17 11:46 IMPRESSION: Unremarkable ultrasound of the kidneys. Incidental small amount of fluid in the right upper quadrant of the abdomen. D/ / Ifrah Abad MD / Ifrah Abad MD Interpreting Provider: Ifrah Abad MD Abdomen/Pelvis CTA 05/13/17 14:17 IMPRESSION: 1. Right-sided retroperitoneal abdominal and pelvic hematomas are confluent one with the other. 2. Additional hematoma formation is seen along the right side of the urinary bladder in the pelvis, with arterial leak from the right common femoral artery into a rounded collection, presumed pseudo aneurysm formation, axial image 223 measuring 12 mm diameter. 3. Calcific atherosclerosis. No aneurysm. 4. Cholecystectomy. Critical results were called by Dr. Jaison Salmeron to Dr Juliet Bender on 05/13/2017 at 15:14. I stressed the importance of reviewing the images and considering treatment. D/ / Jaison Salmeron / Jaison Salmeron Interpreting Provider: Jaison Salmeron Chest X-Ray 05/13/17 19:20 IMPRESSION: No pneumothorax after right jugular line placement D/ / Jc Cooley MD / Jc Cooley MD Interpreting Provider: Jc Cooley MD Abdomen/Pelvis CTA 05/14/17 04:46 IMPRESSION: Large right-sided retroperitoneal hematoma is noted. This has slightly decreased in size since the prior examination of May 13, 2017. There is no evidence of active extravasation of contrast. Postsurgical changes are seen to the right groin. Small right-sided pleural effusion with adjacent atelectasis. Findings were discussed with Zan Isabel at 5:53 am on 05/14/2017. D/ / Kathleen Chaudhary MD / Kathleen Chaudhary MD Interpreting Provider: Kathleen Chaudhary MD Active Medications Acetaminophen (Tylenol) 650 mg PO Q6HR PRN PRN Reason: Mild Pain/Fever Stop: 11/10/17 20:00 Albuterol Sulfate (Albuterol Inhaler) 2 puff IH [id number] PRN PRN Reason: Shortness Of Breath Stop: 11/13/17 00:01 Aspirin (Aspirin Ec) 81 mg PO DAILY KHANG Stop: 11/11/17 09:31 Atorvastatin Calcium (Lipitor) 10 mg PO HS KHANG Stop: 11/11/17 21:01 Carvedilol (Coreg) 6.25 mg PO BIDWM KHANG Stop: 11/12/17 08:46 Clopidogrel Bisulfate (Plavix) 75 mg PO DAILY KHANG Stop: 11/12/17 09:01 Dextrose/Water (Dextrose 50% (Syg)) 25 ml IVP AD PRN PRN Reason: Hypoglycemia Stop: 11/10/17 20:06 Famotidine (Pepcid) 20 mg PO BID KHANG Stop: 11/10/17 21:01 Fluticasone Propionate (Flonase) 100 mcg NS DAILY PRN; Protocol PRN Reason: Allergy Symptoms Stop: 11/10/17 20:03 Gabapentin (Neurontin) 1,200 mg PO HS KHANG Stop: 11/12/17 21:31 Gabapentin (Neurontin) 600 mg PO 0900,1600 KHANG Stop: 11/12/17 09:01 Glucagon (Glucagen) 1 mg IM ONCE PRN PRN Reason: Hypoglycemia Stop: 11/10/17 20:06 Glucose (Gluctose) 15 gm PO ONCE PRN PRN Reason: Hypoglycemia Stop: 11/10/17 20:06 Glucose (Gluctose) 30 gm PO ONCE PRN PRN Reason: Hypoglycemia Stop: 11/10/17 20:06 Hydralazine HCl (Hydralazine) 10 mg IVP Q1H PRN PRN Reason: Hypertension Stop: 11/12/17 21:48 Dextrose (Dextrose 5%) 1,000 mls @ 100 mls/hr IVC .Q10H PRN PRN Reason: HYPOGLYCEMIA Stop: 11/10/17 20:06 Insulin Human Lispro (Humalog) 0 units SQ HS KHANG PRN Reason: Protocol Stop: 11/10/17 21:01 Insulin Human Lispro (Humalog) 0 units SQ TIDAC [facility] PRN Reason: Protocol Stop: 11/13/17 11:31 Labetalol HCl (Labetalol) 10 mg IVP Q1H PRN PRN Reason: SBP greater than 160 Stop: 11/12/17 21:48 Lisinopril (Zestril) 20 mg PO BID [facility] PRN Reason: Protocol Stop: 11/11/17 21:01 Meloxicam (Mobic) 15 mg PO DAILY [facility] Stop: 11/11/17 09:01 Naloxone HCl (Narcan) 0.4 mg IVP Q2MIN PRN PRN Reason: SEE COMMENTS Stop: 11/10/17 20:00 Nitroglycerin (Nitroglycerin) 0.4 mg SL Q5MIN PRN PRN Reason: Chest Pain Stop: 11/10/17 18:01 Ondansetron HCl (Zofran) 4 mg IVP Q8HR PRN PRN Reason: Nausea And Vomiting Stop: 11/12/17 21:48 Oxycodone HCl (Roxicodone) 5 mg PO Q4HR PRN; Protocol PRN Reason: Moderate Pain Stop: 11/12/17 11:54 Venlafaxine HCl (Effexor Xr) 75 mg PO DAILY [facility] Stop: 11/11/17 09:01 Laboratory Tests 05/11/1718 05/14/17 17:13 03:57 03:57 WBC 18.9 H Hgb 16.8 H 9.0 L D Creatinine 0.65 - Imaging and Cardiology Chest Xray: report reviewed Echo: report reviewed Cardiac cath: report reviewed - EKG Interpretation EKG results cardiology: other (Telemetry reviewed with average HR previous 12 hours noted to be 84, SR. PVCs and PACs noted.) - VTE Documentation of Mechanical Device: Intermittent pneumatic compression device Consult Discharge Plan - Plan Instructions: Myocardial Infarction (DC), Cellulitis (DC), Coronary Intravascular Stent Placement (DC), Diabetes Mellitus Type 2 in Adults (DC), Chronic Hypertension (DC), Cigarette Smoking and Your Health, Stock Car Driver ( GEN), Coronary Intravascular Stent Placement, Stock Car Driver (GEN) Additional Instructions: RISK FACTORS: STOP SMOKING: If you smoke, STOP. Smoking or tobacco use significantly increases your risk of heart disease because nicotine causes the arteries to narrow or constrict. It also causes fats to stick to the artery. Your chances of having a heart attack are greatly increased if you continue to smoke. For more information, call the education line for smoking cessation 7-890-WJQMQOV EAT A LOW FAT/CHOLESTEROL/SODIUM DIET: This diet may help reduce your chances of having a heart attack. LIFTING: Avoid lifting anything more than 10 pounds for 5-7 days Prior to straining, laughing, sneezing and/or coughing, apply manual pressure directly over insertion site. ACTIVITY: You may walk or climb stairs as tolerated You can resume sexual activity as tolerated In general, you are encouraged to engage in a minimum of 30 minutes or more of moderate intensity physical activity, such as brisk walking, daily or at least 3 -4 times weekly BATHING Do not submerge the site into water (bath tub, hot tub, swimming pool) for 1 week. This can be a source for infection into the blood stream. You may shower after 24 hours SITE CARE: After 24 hours, you may remove the dressing and leave the site open to air. Keep the site clean and dry. Clean gently and pat dry. You can expect bruising and tenderness that gradually resolve within a week or two. Return to work as instructed per your physician Resume driving as instructed per physician Keep all scheduled follow up appointments Resume medications as instructed IMPORTANT: If prescribed a Platelet Aggregation Inhibitor such as, Plavix, Brilinta or Effient: Duration of therapy is minimum one year These medications are often used in combination with Aspirin in prevention of future heart attacks Never discontinue unless consult with your Reservations Manager STROKE (CVA) Risk factors for a stroke are: Age, cigarette smoking, diabetes, excessive alcohol consumption, family history, high blood pressure, overweight, physical inactivity, prior stroke, heart attack, diagnosis of carotid artery stenosis or other artery disease. Warning signs: Sudden numbness or weakness of the face, arm or leg; especially on one side of the body, sudden confusion, trouble speaking or understanding, sudden trouble seeing in one or both eyes, sudden trouble walking, dizziness, loss of balance or coordination, sudden severe headache with no cause. Call 911 or go to the Emergency Room. CONGESTIVE HEART FAILURE: If you have been diagnosed with Congestive Heart Failure (CHF) and your symptoms return, make an appointment with your physician Weigh yourself daily. Notify your physician if you have a weight gain of two or more pounds in one day or five or more pounds in one week. If you experience any difficulty breathing, please call 911 BLEEDING: Although the risk of bleeding is minimal, it can happen. If you have any bleeding from the site, apply firm pressure above the puncture site for 10-15 minutes. If the bleeding does not stop, continue manual pressure and call 911 Contact your physician if: You develop a fever greater than 101 degrees Fahrenheit Your site becomes reddened or has any drainage You have an increase in pain or burning at the site or if a large knot forms at the site. If you experience chest pain, shortness of breath, dizziness, or extreme tiredness, stop the activity and rest. Please notify your physicians office if you experience any of these symptoms and they are not relieved by rest please call 911! Referrals: Mary Arias CNP [Primary Care Provider] - 05/18/17 1:00 pm
[2017-05-14] MEDS: Insulin LISPRO 300 UNITS/3 ML VIAL SQ SCH ×3 (13:30→19:54)
--- NOTE | 2017-05-14 15:43 | Vascular/Endovas Progress Note ---
Date of Encounter: 05/14/17 Time of Encounter: 15:20 - Assessment and plan (1) Pseudoaneurysm of right femoral artery Current Visit: Yes Status: Acute The patient is postoperative day #1 after right external iliac artery repair. She is healing well. Her symptoms have decreased. She may follow-up with vascular surgery in a few weeks. (2) HTN (hypertension) Current Visit: Yes Status: Chronic Qualifiers: Hypertension type: essential hypertension Qualified Code(s): I10 - Essential (primary) hypertension (3) Diabetes mellitus Current Visit: No Status: Chronic Qualifiers: Diabetes mellitus type: type 2 Diabetes mellitus complication status: with hyperglycemia Diabetes mellitus roller print tender insulin use: unspecified roller print tender insulin use status Qualified Code(s): E11.65 - Type 2 diabetes mellitus with hyperglycemia (4) Tobacco abuse Current Visit: No Status: Chronic (5) NSTEMI (non-ST elevated myocardial infarction) Current Visit: Yes Status: Acute (6) Hyperlipidemia Current Visit: Yes Status: Chronic Qualifiers: Hyperlipidemia type: pure hypercholesterolemia Qualified Code(s): E78.00 - Pure hypercholesterolemia, unspecified; E78.0 - Pure hypercholesterolemia (7) Retroperitoneal hematoma Current Visit: Yes Status: Acute - Subjective Interval history: The patient reports that she is feeling much better. She states that her flank pain has decreased. She denies chest pain or shortness or breath. Vital Signs, Last 4 Hours Temp Pulse Resp BP Pulse Ox 05/14/17 15:22 98 F 89 18 109/63 98 05/14/17 12:00 83 16 96/54 93 - Physical Examination General: Present: Conversant, No Apparent Distress Cardiac: Present: Reg Rate and Rhythm Lungs: Present: Normal Breath Sounds Neuro: Present: Alert and responsive, No focal deficits noted Vascular: Present: Normal capillary refill, Pulse, normal, Surgical incisions ( no heamtoma, bandage dry) Abdomen: Present: Soft - VTE Documentation of Mechanical Device: Intermittent pneumatic compression device Results 05/14/17 08:15 05/14/17 03:57 Lab Results, Last 24 hours 05/13/17 05/14/17 05/14/17 22:45 03:57 03:57 WBC 18.9 H Hgb 10.8 L D 9.0 L D Hct 31.9 L 26.9 L Plt Count 168 Sodium 134 L Potassium 4.3 Chloride 109 H Carbon Dioxide 21 L BUN 22 H Creatinine 0.65 Glucose 268 H Calcium 7.5 L Magnesium 1.7 05/14/17 08:15 WBC Hgb 8.8 L Hct 26.1 L Plt Count Sodium Potassium Chloride Carbon Dioxide BUN Creatinine Glucose Calcium Magnesium Consult Discharge Plan - Plan Instructions: Myocardial Infarction (DC), Cellulitis (DC), Coronary Intravascular Stent Placement (DC), Diabetes Mellitus Type 2 in Adults (DC), Chronic Hypertension (DC), Cigarette Smoking and Your Health, Residential Real Estate Agent ( GEN), Coronary Intravascular Stent Placement, Residential Real Estate Agent (GEN) Additional Instructions: May remove bandage and shower on 05/15/17. No tub baths or swimming until 05/30/17. Follow-up with Dr. Fulton in 2-[address] Fulton with questions or concerns at [phone]. RISK FACTORS: STOP SMOKING: If you smoke, STOP. Smoking or tobacco use significantly increases your risk of heart disease because nicotine causes the arteries to narrow or constrict. It also causes fats to stick to the artery. Your chances of having a heart attack are greatly increased if you continue to smoke. For more information, call the education line for smoking cessation 7-004-OGOBFGM EAT A LOW FAT/CHOLESTEROL/SODIUM DIET: This diet may help reduce your chances of having a heart attack. LIFTING: Avoid lifting anything more than 10 pounds for 5-7 days Prior to straining, laughing, sneezing and/or coughing, apply manual pressure directly over insertion site. ACTIVITY: You may walk or climb stairs as tolerated You can resume sexual activity as tolerated In general, you are encouraged to engage in a minimum of 30 minutes or more of moderate intensity physical activity, such as brisk walking, daily or at least 3 -4 times weekly BATHING Do not submerge the site into water (bath tub, hot tub, swimming pool) for 1 week. This can be a source for infection into the blood stream. You may shower after 24 hours SITE CARE: After 24 hours, you may remove the dressing and leave the site open to air. Keep the site clean and dry. Clean gently and pat dry. You can expect bruising and tenderness that gradually resolve within a week or two. Return to work as instructed per your physician Resume driving as instructed per physician Keep all scheduled follow up appointments Resume medications as instructed IMPORTANT: If prescribed a Platelet Aggregation Inhibitor such as, Plavix, Brilinta or Effient: Duration of therapy is minimum one year These medications are often used in combination with Aspirin in prevention of future heart attacks Never discontinue unless consult with your Rn Mental Health STROKE (CVA) Risk factors for a stroke are: Age, cigarette smoking, diabetes, excessive alcohol consumption, family history, high blood pressure, overweight, physical inactivity, prior stroke, heart attack, diagnosis of carotid artery stenosis or other artery disease. Warning signs: Sudden numbness or weakness of the face, arm or leg; especially on one side of the body, sudden confusion, trouble speaking or understanding, sudden trouble seeing in one or both eyes, sudden trouble walking, dizziness, loss of balance or coordination, sudden severe headache with no cause. Call 911 or go to the Emergency Room. CONGESTIVE HEART FAILURE: If you have been diagnosed with Congestive Heart Failure (CHF) and your symptoms return, make an appointment with your physician Weigh yourself daily. Notify your physician if you have a weight gain of two or more pounds in one day or five or more pounds in one week. If you experience any difficulty breathing, please call 911 BLEEDING: Although the risk of bleeding is minimal, it can happen. If you have any bleeding from the site, apply firm pressure above the puncture site for 10-15 minutes. If the bleeding does not stop, continue manual pressure and call 911 Contact your physician if: You develop a fever greater than 101 degrees Fahrenheit Your site becomes reddened or has any drainage You have an increase in pain or burning at the site or if a large knot forms at the site. If you experience chest pain, shortness of breath, dizziness, or extreme tiredness, stop the activity and rest. Please notify your physicians office if you experience any of these symptoms and they are not relieved by rest please call 911! Referrals: Mary Arias CNP [Primary Care Provider] - 05/18/17 1:00 pm
[2017-05-14] MEDS: Lisinopril 20 MG TABLET PO SCH (19:48)
[2017-05-14] MEDS: Famotidine 20 MG TABLET PO SCH (19:53)
[2017-05-14] MEDS ORDERED: Gabapentin 300 MG CAPSULE PO SCH (21:00)
[2017-05-15] MEDS: *HR* OxyCODONE Immed Rel 5 MG TABLET PO PRN ×3 (04:41→20:41)
[2017-05-15] MEDS: Insulin LISPRO 300 UNITS/3 ML VIAL SQ SCH ×4 (08:00→20:43)
--- NOTE | 2017-05-15 08:01 | Internal Med Progress Note ---
Date of Encounter: 05/15/17 Time of Encounter: 07:59 - Assessment and plan (1) Retroperitoneal hematoma Current Visit: Yes Status: Acute Assessment and plan: Status post surgical intervention by vascular. I appreciate their help. Continue pain control. Follow up with vascular as an outpatient. Monitor H&H as it is slowly dropping. (2) Pseudoaneurysm of right femoral artery Current Visit: Yes Status: Acute Assessment and plan: Plan is as above (3) Acute blood loss anemia Current Visit: Yes Status: Acute Assessment and plan: This is likely postoperative. She had significant drop in her hemoglobin. On admission her hemoglobin was 16.8. Down to 8.8 today. We will continue to trend. She may need to be transfused at least 1 unit before discharge. (4) NSTEMI (non-ST elevated myocardial infarction) Current Visit: Yes Status: Acute Assessment and plan: Status post drug-eluting stent to the circumflex. Continue cardiac meds per cardiology (5) HTN (hypertension) Current Visit: Yes Status: Chronic Assessment and plan: Continue antihypertensives. Qualifiers: Hypertension type: essential hypertension Qualified Code(s): I10 - Essential (primary) hypertension (6) Diabetes mellitus Current Visit: No Status: Chronic Assessment and plan: Glucoses uncontrolled. Hemoglobin A1c is 10. She is currently on insulin sliding scale. We will add 20 units of Levemir twice a day. Continue with Accu -Cheks. Qualifiers: Diabetes mellitus type: type 2 Diabetes mellitus complication status: with hyperglycemia Diabetes mellitus business analytics director insulin use: unspecified chcf insulin use status Qualified Code(s): E11.65 - Type 2 diabetes mellitus with hyperglycemia (7) DVT prophylaxis Current Visit: Yes Status: Acute Assessment and plan: SCDs - Subjective Interval history: Patient seen and examined. No acute events. She was transferred out of ICU after she was transferred thereafter to right groin pseudoaneurysm and retroperitoneal hematoma status post left heart catheterization for which she received a drug-eluting stent to the circumflex artery. She was operated on by vascular. She is hemodynamically stable and now transferred out of ICU. Pain is well-controlled. Afebrile. She was initially admitted with elevated blood pressure and elevated troponins. Treated as an NSTEMI with a heparin drip and consult cardiology. She has been afebrile. - Constitutional Vitals: Temp Pulse Resp BP Pulse Ox 98.3 F 96 18 111/69 96 05/15/17 07:49 05/15/17 07:49 05/15/17 07:49 05/15/17 07:49 05/15/17 07:49 Exam: GEN: NAD CVS: RRR. S1, S2, No m/r/g RESP: CTAB ABD: Soft, NT, and palpation around the right groin and into the right-sided abdomen. +BS EXT: No edema. 2+ DP. No rashes. Right groin area with ecchymosis. No discharge. Surgical incision site looks clean.. No obvious bleeding. NEURO: Nonfocal Internal Medicine: Result - Labs CBC & Chem 7: 05/14/17 08:15 05/14/17 03:57 Labs: Short CBC 05/14/17 Range/Units 08:15 Hgb 8.8 L (11.5-15.4) g/dL Hct 26.1 L (35.3-44.9) % - ABG Interpretation ABG results: PT/INR, D-dimer PT 12.0 Seconds (9.4-12.1) 05/11/17 18:33 D-Dimer < 215 ng/mLFEU (0-500) 05/11/17 18:33 - VTE Documentation of Mechanical Device: Intermittent pneumatic compression device Consult Discharge Plan - Plan Referrals: aMry Arias COOKIE MIXER HELPER [Primary Care Provider] -
[2017-05-15] MEDS: Aspirin Enteric Coated 81 MG Tablet PO SCH (09:30)
[2017-05-15] MEDS: Gabapentin 300 MG CAPSULE PO SCH ×3 (09:31→20:42)
[2017-05-15] MEDS: Lisinopril 20 MG TABLET PO SCH ×2 (09:32→20:44)
[2017-05-15] MEDS: Insulin DETEMIR 100 UNIT/ML X5UNITS SQ SCH ×2 (09:32→20:43)
[2017-05-15] MEDS: Famotidine 20 MG TABLET PO SCH ×2 (09:32→20:44)
[2017-05-15] MEDS: Venlafaxine XR (24 HR) 75 MG CAP.ER.24H PO SCH (09:38)
--- NOTE | 2017-05-15 11:04 | Cardiology Progress Note ---
Date of Encounter: 05/15/17 Time of Encounter: 09:30 Assessment and Plan (1) NSTEMI (non-ST elevated myocardial infarction) Current Visit: Yes Status: Acute Per cardiology: -C: s/p successful PCI to LCx; otherwise non-obstructive CAD. -TTE: EF 60-65%, mild LVDD, no PH, no significant valvular dysfunction, normal wall motion. -Denies chest pain. -Post PCI discharge instruction discussed including care of care site and importance of uninterrupted DAPT (asa + plavix); patient verbalized understanding. -On statin and beta laura. -Risk factor modification emphasized including tobacco cessation, Na restricted diet, daily exercise. -S/p surgical repair of right iliac artery. -Cardiology will sign off and will follow in outpatient setting. Follow up set. (2) Pseudoaneurysm of right femoral artery Current Visit: Yes Status: Acute Per cardiology: -S/p surgical repair (3) Retroperitoneal hematoma Current Visit: Yes Status: Acute Per cardiology: -S/p surgical repair. (4) Tobacco abuse Current Visit: No Status: Chronic Per cardiology: -Smoking cessation counseling provided. Discussion w patient/family: The assessment and plan as outlined above was discussed with the patient who expressed understanding and agreement. All questions were answered. Thank you for involving us in the care of your patient. Please call with any questions. Discussed and reviewed with . Subjective Principal diagnosis: NSTEMI, HTN urgency Interval history: Patient is s/p surgical repair of right iliac artery. Patient states she feels much better today. Denies chest pain. Reports pain is controlled. Objective Vital Signs, Last 4 Hours Temp Pulse Resp BP Pulse Ox 05/15/17 07:49 98.3 F 96 18 111/69 96 General: Conversant, No Apparent Distress HEENT: Atraumatic, Normocephaly, Mucus Membranes Moist Neck: No JVD, Normal carotid pulses Cardiac: Reg Rate and Rhythm, Normal S1 and S2, No Murmur Lungs: Normal Breath Sounds, No Wheeze, Rales, Rhonchi Neuro: Alert and responsive, No focal deficits noted Abdomen: Soft, Non-Tender Skin: No rashes noted on visualized skin, Other (Dressing noted to right groin, bruising noted. ) Musculoskeletal: No Chest Wall Tenderness Extremities: No Clubbing, No Cyanosis, No Edema, Normal Pulses Results 05/14/17 08:15 05/14/17 03:57 Active Medications Acetaminophen (Tylenol) 650 mg PO Q6HR PRN PRN Reason: Mild Pain/Fever Stop: 11/10/17 20:00 Albuterol Sulfate (Albuterol Inhaler) 2 puff IH [id number] PRN PRN Reason: Shortness Of Breath Stop: 11/13/17 00:01 Aspirin (Aspirin Ec) 81 mg PO DAILY [facility] Stop: 11/11/17 09:31 Last Admin: 05/15/17 09:30 Dose: 81 mg Atorvastatin Calcium (Lipitor) 10 mg PO HS [facility] Stop: 11/11/17 21:01 Last Admin: 05/14/17 19:53 Dose: 10 mg Carvedilol (Coreg) 6.25 mg PO BIDWM [facility] Stop: 11/12/17 08:46 Last Admin: 05/15/17 09:32 Dose: 6.25 mg Clopidogrel Bisulfate (Plavix) 75 mg PO DAILY [facility] Stop: 11/12/17 09:01 Last Admin: 05/15/17 09:32 Dose: 75 mg Dextrose/Water (Dextrose 50% (Syg)) 25 ml IVP AD PRN PRN Reason: Hypoglycemia Stop: 11/10/17 20:06 Famotidine (Pepcid) 20 mg PO BID [facility] Stop: 11/10/17 21:01 Last Admin: 05/15/17 09:32 Dose: 20 mg Fluticasone Propionate (Flonase) 100 mcg NS DAILY PRN; Protocol PRN Reason: Allergy Symptoms Stop: 11/10/17 20:03 Gabapentin (Neurontin) 1,200 mg PO HS [facility] Stop: 11/12/17 21:31 Last Admin: 05/14/17 19:49 Dose: 1,200 mg Gabapentin (Neurontin) 600 mg PO 0900,1600 KHANG Stop: 11/12/17 09:01 Last Admin: 05/15/17 09:31 Dose: 600 mg Glucagon (Glucagen) 1 mg IM ONCE PRN PRN Reason: Hypoglycemia Stop: 11/10/17 20:06 Glucose (Gluctose) 15 gm PO ONCE PRN PRN Reason: Hypoglycemia Stop: 11/10/17 20:06 Glucose (Gluctose) 30 gm PO ONCE PRN PRN Reason: Hypoglycemia Stop: 11/10/17 20:06 Hydralazine HCl (Hydralazine) 10 mg IVP Q1H PRN PRN Reason: Hypertension Stop: 11/12/17 21:48 Dextrose (Dextrose 5%) 1,000 mls @ 100 mls/hr IVC .Q10H PRN PRN Reason: HYPOGLYCEMIA Stop: 11/10/17 20:06 Insulin Detemir (Levemir) 20 unit SQ BID [facility] Stop: 11/14/17 09:01 Last Admin: 05/15/17 09:32 Dose: 20 unit Insulin Human Lispro (Humalog) 0 units SQ HS [facility] PRN Reason: Protocol Stop: 11/10/17 21:01 Last Admin: 05/14/17 19:54 Dose: 6 units Insulin Human Lispro (Humalog) 0 units SQ TIDAC [facility] PRN Reason: Protocol Stop: 11/13/17 11:31 Last Admin: 05/15/17 08:00 Dose: 14 units Labetalol HCl (Labetalol) 10 mg IVP Q1H PRN PRN Reason: SBP greater than 160 Stop: 11/12/17 21:48 Lisinopril (Zestril) 20 mg PO BID [facility] PRN Reason: Protocol Stop: 11/11/17 21:01 Last Admin: 05/15/17 09:32 Dose: 20 mg Meloxicam (Mobic) 15 mg PO DAILY [facility] Stop: 11/11/17 09:01 Last Admin: 05/15/17 09:30 Dose: 15 mg Naloxone HCl (Narcan) 0.4 mg IVP Q2MIN PRN PRN Reason: SEE COMMENTS Stop: 11/10/17 20:00 Nitroglycerin (Nitroglycerin) 0.4 mg SL Q5MIN PRN PRN Reason: Chest Pain Stop: 11/10/17 18:01 Ondansetron HCl (Zofran) 4 mg IVP Q8HR PRN PRN Reason: Nausea And Vomiting Stop: 11/12/17 21:48 Oxycodone HCl (Roxicodone) 5 mg PO Q4HR PRN; Protocol PRN Reason: Moderate Pain Stop: 11/12/17 11:54 Last Admin: 05/15/17 04:41 Dose: 5 mg Venlafaxine HCl (Effexor Xr) 75 mg PO DAILY [facility] Stop: 11/11/17 09:01 Last Admin: 05/15/17 09:38 Dose: 75 mg Laboratory Tests 05/14/17 05/14/17 03:57 03:57 Hgb 9.0 L D Creatinine 0.65 - Imaging and Cardiology Chest Xray: report reviewed Echo: report reviewed Cardiac cath: report reviewed - EKG Interpretation EKG results cardiology: other (Telemetry reviewed with average HR previous 12 hours noted to be 96, SR. PACs noted.) - VTE Documentation of Mechanical Device: Intermittent pneumatic compression device Consult Discharge Plan - Plan Referrals: Mary Arias, SET UP INSPECTOR [Primary Care Provider] -
[2017-05-15 11:29] LABS: Hematocrit 22.6 % (35.3-44.9); Hemoglobin 7.6 g/dL (11.5-15.4)
--- NOTE | 2017-05-15 11:30 | Vascular/[facility] Progress Note ---
Date of Encounter: 05/15/17 Time of Encounter: 08:30 - Assessment and plan (1) Pseudoaneurysm of right femoral artery Current Visit: Yes Status: Acute Feeling well today. She is postoperative day #2 after repair of her right iliac artery. Her incision is healing. She has no hematoma. She is hemodynamically stale. Check hemoglobin today. 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 Qualified Code(s): E11.65 - Type 2 diabetes mellitus with hyperglycemia (4) Tobacco abuse Current Visit: No Status: Chronic (5) NSTEMI (non-ST elevated myocardial infarction) Current Visit: Yes Status: Acute (6) Hyperlipidemia Current Visit: Yes Status: Chronic Qualifiers: Hyperlipidemia type: pure hypercholesterolemia Qualified Code(s): E78.00 - Pure hypercholesterolemia, unspecified; E78.0 - Pure hypercholesterolemia (7) Retroperitoneal hematoma Current Visit: Yes Status: Acute (8) Acute blood loss anemia Current Visit: Yes Status: Acute She has acute expected postoperative blood loss anemia. She has received PRBCs. She is hemodynamically stable without evidence of ongoing blood loss. - Subjective Interval history: The reports adequate pain control. She is ambulating well. She reports that she choked on her coffee this morning. She is alert and comfortable. She denies chest pain or shortness or breath. Vital Signs, Last 4 Hours Temp Pulse Resp BP Pulse Ox 05/15/17 07:49 98.3 F 96 18 111/69 96 - Physical Examination General: Present: Conversant HEENT: Present: Pupils equal Cardiac: Present: Reg Rate and Rhythm Lungs: Present: Normal Breath Sounds Neuro: Present: Alert and responsive, No focal deficits noted Vascular: Present: Pulse, normal, Surgical incisions (no hematoma) - VTE Documentation of Mechanical Device: Intermittent pneumatic compression device Results 05/14/17 08:15 05/14/17 03:57 Consult Discharge Plan - Plan Referrals: Mary Arias, NEWS PRODUCTION ASSISTANT [Primary Care Provider] -
[2017-05-15] MEDS ORDERED: 0.9 % Sodium Chloride 250 ML ONE (15:10)
--- NOTE | 2017-05-15 18:04 | Electrocardiograph Report ---
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
[2017-05-16] MEDS: *HR* OxyCODONE Immed Rel 5 MG TABLET PO PRN ×2 (05:20→14:35)
[2017-05-16 05:39] LABS: Basophils % 0.4 %; Eosinophils # 0.1 K/mcL (0.0-0.6); Eosinophils % 1.5 %; Hematocrit 26.8 % (35.3-44.9); Immature Granulocytes % 0.7 % (0-4); Lymphocytes # 2.9 K/mcL (0.6-4.6); Lymphocytes % 33.5 %; Mean Corpuscular HGB Conc 33.6 g/dL (31.6-35.5); Mean Corpuscular Hemoglobin 31.1 pg (28.0-33.3); Mean Corpuscular Volume 92.7 fL (83.0-100.0); Mean Platelet Volume 10.9 fL (9.4-12.4); Monocytes # 0.6 K/mcL (0.0-1.3); Monocytes % 7.3 %; Neutrophils # 4.8 K/mcL (1.6-8.9); Nucleated Red Blood Cells 0.2 /100 WBC (0); Platelet Count 125 K/mcL (140-400); Red Blood Count 2.89 M/mcL (3.82-4.97); Red Cell Distribution Width 14.2 % (11.5-14.5); Segmented Neutrophils % 56.6 %
[2017-05-16 06:04] LABS: BUN/Creatinine Ratio 17 (6-26); Blood Urea Nitrogen 7 mg/dL (6-20); Calcium 8.1 mg/dL (8.6-10.3); Carbon Dioxide 26 mEq/L (23-29); Chloride 106 mEq/L (98-107); Glucose 214 mg/dL (70-105); Magnesium 1.6 mg/dL (1.6-2.6); Osmolality,Calculated 284 (280-300); Potassium 3.7 mEq/L (3.5-5.1); Sodium 135 mEq/L (136-145); eGFR For African Americans > 60 (> 60); eGFR For Non-African Americans > 60 (> 60)
[2017-05-16] MEDS: Aspirin Enteric Coated 81 MG Tablet PO SCH (08:36)
[2017-05-16] MEDS: Famotidine 20 MG TABLET PO SCH (08:37)
[2017-05-16] MEDS: Gabapentin 300 MG CAPSULE PO SCH (08:37)
[2017-05-16] MEDS: Venlafaxine XR (24 HR) 75 MG CAP.ER.24H PO SCH (08:37)
[2017-05-16] MEDS: Lisinopril 20 MG TABLET PO SCH (08:37)
[2017-05-16] MEDS: Insulin DETEMIR 100 UNIT/ML X5UNITS SQ SCH (08:37)
[2017-05-16] MEDS: Insulin LISPRO 300 UNITS/3 ML VIAL SQ SCH ×2 (08:38→12:27)
[2017-05-16 11:31] VITALS: BP 138/75
--- NOTE | 2017-05-16 11:52 | Discharge Summary ---
Date of Encounter: 05/16/17 Time of Encounter: 11:50 - Discharge Diagnosis (1) Retroperitoneal hematoma Priority: Primary Status: Acute (2) Pseudoaneurysm of right femoral artery Priority: Primary Status: Acute (3) Acute blood loss anemia Priority: Primary Status: Acute (4) NSTEMI (non-ST elevated myocardial infarction) Priority: Primary Status: Acute (5) HTN (hypertension) Priority: Secondary Status: Chronic Qualifiers: Hypertension type: essential hypertension Qualified Code(s): I10 - Essential (primary) hypertension (6) Diabetes mellitus Priority: Secondary Status: Chronic Qualifiers: Diabetes mellitus type: type 2 Diabetes mellitus complication status: with hyperglycemia Diabetes mellitus search engine optimizer insulin use: unspecified search engine optimizer insulin use status Qualified Code(s): E11.65 - Type 2 diabetes mellitus with hyperglycemia - Discharge Medications Prescriptions: Aspirin Enteric Coated [Aspirin EC] 81 mg PO DAILY #30 tablet. Atorvastatin [Lipitor] 10 mg PO HS #30 tablet Carvedilol [Coreg] 6.25 mg PO BIDWM #30 tablet Clopidogrel [Plavix] 75 mg PO DAILY #30 tablet Home Medications: Gabapentin [Neurontin] 1,200 mg PO HS 02/24/15 [History] Gabapentin [Neurontin] 600 mg PO BID 02/24/15 [History] Ranitidine HCl [Zantac] 150 mg PO BID 02/24/15 [History] Venlafaxine HCl [Effexor Xr] 75 mg PO DAILY 02/24/15 [History] Oxycodone HCl/Acetaminophen [Percocet 10-325 mg Tablet] 1 each PO TID PRN [History] Lisinopril [Zestril] 20 mg PO DAILY #30 tablet 03/02/17 [Rx] Albuterol Sulfate [Ventolin Hfa] 2 puff IH Q4H PRN 05/11/17 [History] Fluticasone Propionate Nasal [Flonase] 100 mcg NS DAILY PRN 05/11/17 [History] Insulin Regular, Human [Humulin R U-500 Kwikpen] 55 unit SQ TID 05/11/17 [ History] Meloxicam 15 mg PO DAILY 05/11/17 [History] Metformin HCl [Metformin HCl ER] 1,000 mg PO QPM 05/11/17 [History] Aspirin Enteric Coated [Aspirin EC] 81 mg PO DAILY #30 tablet. 05/16/17 [Rx] Atorvastatin [Lipitor] 10 mg PO HS #30 tablet 05/16/17 [Rx] Carvedilol [Coreg] 6.25 mg PO BIDWM #30 tablet 05/16/17 [Rx] Clopidogrel [Plavix] 75 mg PO DAILY #30 tablet 05/16/17 [Rx] Allergies/Adverse Reactions: 3 Allergy/AdvReac Type Severity Reaction Status Date / Time morphine Allergy Unknown See Verified 05/13/17 12:11 Comments Penicillins Allergy Hives Verified 05/11/17 16:42 hydrocodone AdvReac Hives Verified 05/11/17 16:42 Procedures/tests Complete & Pending: Procedures Performed prior 72 hours Category Date Time Status CT angio abdomen pelvis [CT] Stat Cat Scan 05/13/17 14:17 Completed CTA Abdomen/Pelvis [CT angio abdomen pelvis] [CT] Stat Cat Scan 05/14/17 04: 46 Completed US abdomen limited [US] Stat Exams 05/13/17 11:44 Draft US retroperitoneal comp [US] Stat Exams 05/13/17 11:46 Completed Date of admission: 05/11/17 18:47 Primary care physician: Mary Arias CNP Consults: 05/11/17 20:01 Consult to Physician [CONS] Routine Consulting Provider: Mary Kay Solo Reason for Consult: nstemi Time Notified: 20:02 Call Completed: Yes 05/12/17 16:21 Consult to Cardiac Rehabilitation-Phase1 [CONS] Routine Comment: Reason for Consult: AMI Call Completed: Yes Consult to Nurse Navigator [CONS] Routine Comment: 05/13/17 13:21 Consult to Pulmonology [CONS] Routine Consulting Provider: [facility] Gloria Reason for Consult: hypotention. retroperitoneal bleed. s/p C Call Completed: Yes 05/13/17 14:20 Consult to Vascular Surgery [CONS] Routine Consulting Provider: Vascular Surgery Gloria Reason for Consult: retroperitoneal hematoma Call Completed: Yes - Patient Status Disposition: Home, Self-Care Condition: Fair Overall status at discharge: patient is progressing back to baseline - Discharge Instructions Follow Up With: Mary Arias CNP [Primary Care Provider] - (called office several time it just rang no one answered please call and make a follow up appointment for 7-10 days) Ruddy Fulton MD [Partnered Physician] - (1 week) Maura Nieves CNP [Advanced Practice Nurse] - (1 week will call patient at home with appointment date and time) - Diet and Activity Activity: increase activity as tolerated Diet: diabetic diet, low salt diet Hospital course: Ms. Taylor is a 51 year old female with history of diabetes, hypertension, smoking history, high cholesterol anxiety and depression and obesity. Patient presented to the diabetic clinic today and blood pressure was very highand complained of chest pressure and progressive shortness of breath. She was then sent to the emergency room where evaluation showed troponin was 0.13 and blood pressure was 180/99. The patient was admitted for NSTEMI and was started on a heparin drip and seen by cardiology. She underwent a LHC and a SHMUEL was placed to the distal circ. She was returned to the floor and started on cardiac meds. The day after the cath, she experienced sudden onset of sharp pain on the right groin at the site of the LHC access and was complaining of abdominal pain that was so severe. Her blood pressure also dropped into the 60s systolic at some point during that episode but that was after she had received fentanyl. She received 1 L fluid bolus and was transferred to the ICU. Prior to that she underwent bedside ultrasound as we could not send patient down for CT as she was not stable and could not lay flat due to the pain. The bedside ultrasound showed areas of fluid collection suspicious for retroperitoneal hemorrhage. She was transferred to the ICU and vascular was consulted. Her pain was controlled there. She underwent a CTA of abdomen and pelvis which showed right sided retroperitoneal abdominal pelvic hematomas with additional hematoma formation along the right side of the urinary bladder. There was arterial leak from the right common femoral artery into a rounded collection, presumed pseudoaneurysm formation. Vascular took her to the OR for repair of the pseudoaneurysm and direct repair of the right external iliac artery. She was transferred out of the ICU after a 2 day stay there. Her hemoglobin was as low as 7.6 for which she was transfused 1 unit of PRBCs. On day of discharge her hemoglobin was 9.0 and 8.5. She was stable for discharge on 05/16/2017 with recommended follow up with cardiology, vascular, her PCP. I do recommend patient get another CBC checked when she sees her primary care physician. She is discharged on proper cardiac meds including aspirin/Plavix/beta laura/ statin. - Time Spent with Patient Total time spent providing and/or coordinating discharge services: Greater than 30 minutes - Constitutional Vitals: Temp Pulse Resp BP Pulse Ox 97.8 F 88 18 138/75 97 05/16/17 05:48 05/16/17 11:00 05/16/17 11:00 05/16/17 11:00 05/16/17 07:00 Exam: GEN: NAD CVS: RRR. S1, S2, No m/r/g RESP: CTAB ABD: Soft, NT, and palpation around the right groin and into the right-sided abdomen. +BS EXT: No edema. 2+ DP. No rashes. Right groin area with ecchymosis. No discharge. Surgical incision site looks clean.. No obvious bleeding. NEURO: Nonfocal - VTE Documentation of Mechanical Device: Intermittent pneumatic compression device
[2017-05-16 12:42] LABS: Hematocrit 25.2 % (35.3-44.9); Hemoglobin 8.5 g/dL (11.5-15.4)
== END 2017-05-16 16:15 | disposition home or self-care (01) | DRG 246 ==
LOC: EMEROO 16:40 → SUATTDRO 18:47 → 2NENU 18:47 → ICNU 05-13 14:52 → 2NENU 05-14 15:43
PROVIDERS: ADMIT Nurse Practitioner Family; ATTEND Internal Medicine Cardiovascular Disease